=== PATIENT | female | born 1990 | race Caucasian/White ===

== ENCOUNTER 2023-05-26 13:27 | Outpatient (OUT) | payer OTHER, SELFPAY ==
--- NOTE | 2023-05-26 13:29 | US_ITS ---
The [address] [address] Patient Name: DENEEN OSORIO MRN: [id number] date: 1990 Sex: F Assigned Patient Location: US Current Patient Location: US Accession/Order Number: [id number] Exam Date: 05/26/2023 13:35 Report Date: 05/26/2023 15:54 At the request of: BARBARA COMER Procedure: US OB <= 14 weeks fetus EXAMINATION: US OB <= 14 weeks fetus HISTORY: MISSED MENSES COMPARISON: No relevant comparison available. FINDINGS: [place] intrauterine gestation Gestational sac: Normal morphology. 6.53 cm CRL: 7.14 cm, 13 weeks 2 days Heart rate: 159 beats minute Uterus is normal, anteverted The ovaries are normal. Cervix: Not measured Clinical age: 12 weeks 3 days Clinical JUAN ALBERTO: 12/05/2023 Ultrasound age: 13 weeks 2 days Ultrasound JUAN ALBERTO: 11/29/2023 US/US OB <= 14 weeks fetus IMPRESSION: Viable [place] intrauterine gestation measuring 13 weeks 2 days Electronically authenticated by: JAMES MANZO Date: 05/26/2023 15:54
== END 2023-05-26 13:28 | disposition home or self-care (01) ==
LOC: US 13:27
PROVIDERS: Visit Provider Obstetrics & Gynecology
DX: Z34.92 Encounter for supervision of normal pregnancy, unspecified, second trimester (principal); Z3A.13 13 weeks gestation of pregnancy; N92.6 Irregular menstruation, unspecified
CPT/HCPCS: 76801

== ENCOUNTER 2023-06-03 13:59 | Outpatient (OUT) | payer OTHER, SELFPAY ==
--- OUTSIDE RECORDS SUMMARY | 2023-06-03 14:02 | XMS_ITS | CCD ---
Author Name Unknown Address [address] [place] [address] Organization [facility] Care Team Providers Care Storage Battery Inspector And Tester Name Role Phone DR BARBARA COMER Attending Unavailable DR BARBARA COMER Admitting Unavailable Encounters Encounter Date Encounter Type Care Provider Facility Start: 05-26-2023 End: 05-26-2023 ambulatory Not Available Start: 09-19-[address] BARBARA COMER Facility : Payers Date Payer Category Payer Unknown [id number] 1990 Unknown [id number] 1990 Unknown [id number] 1958 Self-pay [id number] Summary Purpose Family History No Family History Records FoundNo Family History Records Found Advance Directives No Advanced Directives Records FoundNo Advanced Directives Records Found Additional Source Comments INFORMATION SOURCE (unrecogn ized section and content) DATE CREATED AUTHOR 09/19/2020 [facility] DATE CREATED AUTHOR AUTHOR'S ORGANIZ ATION 05/27/2023 [facility] EPIC FOR RECORDS PERTAINING TO PATIENTS WHO ARE OR HAVE BEEN ENROLLED IN A CHEMICAL DEPENDENCY/SUBSTANCEABUSE PROGRAM, SOME INFORMATION MAY BE OMITTED. This clinical summary was aggregated from multiple sources. Caution should be exercised in using it in the provision of clinical care. This summary normalizes information from multiple sources, and as a consequence, information in this document may materially change the coding, format and clinical context of patient data. In addition, data may be omitted in some cases. CLINICAL DECISIONS SHOULD BE BASED ON THE PRIMARY CLINICAL RECORDS. [facility] [employer] [facility]. provides no warranty or guarantee of the accuracy or completeness of information in this document.
[2023-06-03 14:42] LABS: Basophils Percent Auto 0.4 % (0.2-2.0); Eosinophils Absolute Auto 0.2 10^3/uL (0.0-0.7); Eosinophils Percent Auto 2.4 % (0.9-7.0); Hematocrit 31.9 % (36.0-48.0); Immature Granulocytes Abs Auto 0.03 10^3/uL (0.00-0.03); Immature Granulocytes Pct Auto 0.4 % (0.0-0.5); Lymphocytes Absolute Auto 2.6 10^3/uL (1.2-3.8); Lymphocytes Percent Auto 30.5 % (20.5-60.0); Mean Corpuscular HGB Conc 34.5 g/dL (29.9-35.2); Mean Corpuscular Hemoglobin 32.1 pg (26.7-34.0); Mean Platelet Volume 9.9 fL (9.5-13.5); Monocytes Absolute Auto 0.4 10^3/uL (0.3-0.8); Neutrophils Absolute Auto 5.2 10^3/uL (1.4-6.5); Neutrophils Percent Auto 61.3 % (43.0-75.0); Platelet Count 294 10^3/uL (150-450); Red Blood Count 3.43 10^6/uL (4.20-5.40); Red Cell Distribution Width 13.1 % (11.0-15.0); White Blood Count 8.4 10^3/uL (4.0-11.0)
[2023-06-03 14:52] LABS: Estimated Average Glucose 97 mg/dL
[2023-06-03 15:25] LABS: Thyroid Stimulating Hormone 1.122 uIU/mL (0.358-3.740)
[2023-06-04 06:10] LABS: HBsAg Screen Negative (Negative); HIV Ab/p24 Ag Screen Non Reactive (Non Reactive); Rubella Antibodies, IgG 1.71 index (Immune >0.99)
[2023-06-04 10:09] LABS: HCV Ab Non Reactive (Non Reactive)
[2023-06-04 11:09] LABS: Rapid Plasma Reagin, Quant Non Reactive titer (NonRea<1:1)
== END 2023-06-03 14:00 | disposition home or self-care (01) ==
LOC: LAB 14:00
PROVIDERS: Visit Provider Obstetrics & Gynecology
DX: N91.2 Amenorrhea, unspecified (principal)
CPT/HCPCS: 36415; 83036; 84443; 85025; 86592; 86762; 86803; 86850; 86900; 86901; 87086; 87340; 87389

== ENCOUNTER 2023-06-15 21:19 | Outpatient (REF) | payer OTHER, SELFPAY ==
--- OUTSIDE RECORDS SUMMARY | 2023-06-15 21:23 | XMS_ITS | CCD ---
Author Name Unknown Address [address] [place] [address] Organization [facility] Care Team Providers Care Crane Operator Cab Name Role Phone DR BARBARA COMER Attending Unavailable DR BARBARA COMER Admitting Unavailable Encounters Encounter Date Encounter Type Care Provider Facility Start: 05-26-2023 End: 05-26-2023 ambulatory Not Available Start: 09-19-[address] BARBARA COMER Facility : Payers Date Payer Category Payer Unknown [id number] 1990 Unknown [id number] 1990 Unknown [id number] 1958 Self-pay [id number] Summary Purpose Family History No Family History Records FoundNo Family History Records Found Advance Directives No Advanced Directives Records FoundNo Advanced Directives Records Found Additional Source Comments INFORMATION SOURCE (unrecogn ized section and content) DATE CREATED AUTHOR 09/19/2020 [facility] DATE CREATED AUTHOR AUTHOR'S ORGANIZ ATION 05/27/2023 [facility] EPIC FOR RECORDS PERTAINING TO [...] BE BASED ON THE PRIMARY CLINICAL RECORDS. [facility] [employer] [facility]. provides no warranty or guarantee of the accuracy or completeness of information in this document.
[2023-06-20 19:07] LABS: Age Gdln ACOG Testing Note (.); HPV Aptima Negative (Negative); IGP, Aptima HPV, rfx 16/18,45 Note (.)
== END 2023-06-15 21:20 | disposition home or self-care (01) ==
LOC: LAB 21:19
PROVIDERS: Visit Provider Obstetrics & Gynecology
DX: Z01.419 Encounter for gynecological examination (general) (routine) without abnormal findings (principal)
CPT/HCPCS: 87624; G0145

== ENCOUNTER 2023-07-02 09:21 | Outpatient (OUT) | payer OTHER, SELFPAY ==
--- OUTSIDE RECORDS SUMMARY | 2023-07-02 09:23 | XMS_ITS | CCD ---
Author Name Unknown Address [email or web address] [place] [address] Organization [facility] Care Team Providers Care Sleeve Setter Lockstitch Name Role Phone DR BARBARA BEAULIEU Attending Unavailable DR BARBARA BEAULIEU Admitting Unavailable BARBARA BEAULIEU Attending Unavailable Unavailable Primary Care Provider Unavailabl e Problems Problem Classification Problem Date Documented Da te Episodic/Chronic Immunizations and screening for infectious disease (2 sources) Exposure to sexually transmissible disorder; Translations: [Contact with and (suspected) exposure to infections with a predominantly sexual mode of transmission] 06-10-2023 Episodic Other female genital disorders (2 sources) Vaginal discharge; Translations: [Other specified noninflammatory disorders of vagina] 06-10-2023 Episodic Other and delivery including normal (2 sources) Second trimester ; Translations: [Encounter for supervision of normal , unspecified, second trimester] 06-10-2023 Episodic Other screening for suspected conditions (not mental disorders or infectious disease) (2 sources) Patient encounter status; Translations: [Encounter for other specified screening] 06-15-2023 Episodic Residual codes; unclassified (2 sources) Family history of diabetes mellitus; Translations: [Family history of diabetes mellitus] 06-15-2023 Episodic Results Test Name Value Interpretation Reference Range Facility IGP,APTIMA HPV,AGE GDLNon AGE GDLN ACOG TESTING Note . [facility] Comment on above: TESTS RESULT FLAG UN ITS REF RANGE LAB Clinician Provided Cytology Information Source.............End[employer]ix Other.............. No. of containers..01 ThinPrep Vial Age Mirza CANTRELL Yisel... 31 FLAG LEGEND: L-Low Normal,H-High Normal,LL-Alert Low,HH-Alert High <-Panic Low,>-Panic High,A-Abnormal,AA-Critical Abnormal Performed at: 01 =[address] [address] Belinda Rosenberg MD, HPV APTIMA Negative Negative [facility] Comment on above: This nucleic acid am plification test detects fourteen high- risk HPV types (16,18,31,33,35,39,45,51,52,56,58,59,66,68) without differentiation. Performed at: =[address] [id number] Bearing Ring Assembler: Belinda Rosenberg MD, Phone: [phone] Performed at: [address] [id number] Bearing Ring Assembler: Belinda Rosenberg MD, Phone: [phone] IGP, APTIMA HPV, RFX 16/18,45 Note . [facility] Comment on above: TESTS RESULT FLAG UN ITS REF RANGE LAB DIAGNOSIS: 02 NEGATIVE FOR INTRAEPITHELIAL LESION OR MALIGNANCY. Specimen adequacy: 02 Satisfactory for evaluation. Endocervical and/or squamous metaplastic cells (endocervical component) are present. Performed by: 02 Joe Gonzalez Disintegrator ([facility]) . 02 Note: Note 02 The Pap smear is a screening test designed to aid in the detection of premalignant and malignant conditions of the uterine cervix. It is not a diagnostic procedure and should not be used as the sole means of detecting cervical cancer. Both false-positive and false-negative reports do occur. Test Methodology: Note 02 This liquid based ThinPrep(R) pap test was screened with the use of an image guided system. HPV Genotype Reflex Note 02 Criteria not met, HPV Genotype not performed. FLAG LEGEND: L-Low Normal,H-High Normal,LL-Alert Low,HH-Alert High <-Panic Low,>-Panic High,A-Abnormal,AA-Critical Abnormal Performed at: 02 [facility] [address] [address] Belinda Rosenberg MD, [facility] Urinalysis macro (dipstick) panel (U)on 06-15-2023 Bilirubin, UA Negative Negative - 4(70) +++ mg/dL [facility] [employer] Blood, UA Negative Negative - 50 Bonifacio/mcL [facility] [employer] Clarity, UA Clear [facility] Color, UA Yellow [facility] Glucose, UA Negative Negative - 2000(110) ++++ mg/dL [facility] Interpretation and review of laboratory results Normal [facility] [employer] Ketones, UA Negative Negative - 160(16) ++++ mg/dL [facility] Leukocytes, UA Negative Negative - 500+++ Shahrzad/mcL [facility] Nitrite, UA Negative Negative - Positive [facility] pH, UA 5.5 5 - 9 [facility] Healthcar e Protein, UA Negative Negative - 2000(20) ++++ mg/dL [facility] Spec Grav, UA 1.020 1 - 1.03 [facility] Urobilinogen, UA 1.0 0.2 - 12 mg/dL [facility] Health[facility] e Vital Signs Date Time Vital Sign Value Performing Clinician Faci lity 06-15-2023 15:48-0500 Body weight 92.53 kg Barbara Christofer DO Work Phone: [facility] 06-15-2023 15:48-0500 Diastolic blood pressure 74 mm[Hg] Barbara Christofer DO Work Phone: [facility] 06-15-2023 15:48-0500 Systolic blood pressure 120 mm[Hg] Barbara Christofer DO Work Phone: [facility] Encounters Encounter Date Encounter Type Care Provider Facility Start: 06-15-2023 End: 06-15-2023 ambulatory BARBARA CHRISTOFER Not Available Start: 06-15-2023 End: 06-15-2023 Patient encounter procedure Barbara Christofer DO Work Phone: [facility] Start: 06-15-2023 End: 06-15-2023 Periodic preventive med est patient 18-39 yrs Barbara Christofer DO Work Phone: [facility] OB Comment on above: Second trimester pre gnancy; Well woman exam with routine gynecological exam; Exposure to STD; Vaginal discharge; Screening, , for anatomic survey; Family history of gestational diabetes mellitus (GDM) Start: 06-15-2023 [facility] Result Encounter Barbara Christofer DO Work Phone: [facility] External Department Unsolicited Start: 06-15-2023 [facility] Result Encounter Barbara Christofer DO Work Phone: [facility] External Department Unsolicited Start: 05-26-2023 End: 05-26-2023 ambulatory BARBARA CHRISTOFER Not Available Start: 09-19-[address] BARBARA BEAULIEU Facility :H1 Procedures Date Procedure Procedure Detail Performing Clinician Start: 06-15-2023 IGP,APTIMA HPV,AGE GDLN Barbara Beaulieu DO Work Phone: Start: 06-15-2023 Urnls dip stick/tabl et rgnt non-auto w/o micrscp Barbara Beaulieu DO Work Phone: Plan of Treatment Date Care Activity Detail Author Start: 07-13-2023 End: 07-13-2023 Patient encounter procedure 07/13/2023 2:50 PM EST Routine [facility] [address] [place] [address] Jeny Colón PA [address] [place] [address] [facility] Start: 07-13-2023 End: 07-13-2023 Professional / ancillary services management 07/13/2023 2:00 PM EST Ancillary Procedure [facility] [address] [place] [address] [facility] Start: 06-15-2023 End: 09-13-2023 Alpha fetoprotein, maternal Alpha fetoprotein, maternal Lab Routine Second trimester Expected: 06/15/2023 (Approximate), Expires: 09/13/2023 [facility] Comment on above: Expected: 06/15/2023 (Approximate), Expires: 09/13/2023 Start: 06-15-2023 End: 06-15-2024 US for US OB ANATOMY SINGLE W US OB CERVICAL LENGTH Imaging Routine Screening, , for anatomic survey Expected: 06/15/2023 (Approximate), Expires: 06/15/2024 [facility] Comment on above: Expected: 06/15/2023 (Approximate), Expires: 06/15/2024 CHLAMYDIA TRACHOMATI S (GENITO/STI) CHLAMYDIA TRACHOMATIS (GENITO/STI) Lab Routine Exposure to STD Ordered: 06/15/2023 [facility] Comment on above: Ordered: 06/15/2023 Cytology Cervical or vaginal smear or scraping study Pap Smear Pathology and Cytology Routine Well woman exam with routine gynecological exam Ordered: 06/15/2023 [facility] Work Phone: Comment on above: Ordered: 06/15/2023 Human papilloma viru s DNA [Presence] in Unspecified specimen by Probe with amplification HPV DNA probe, amplified Microbiology Routine Well woman exam with routine gynecological exam Ordered: 06/15/2023 [facility] Comment on above: Ordered: 06/15/2023 Measurement of gluco se 1 hour after glucose challenge for glucose tolerance test GTT, 1 hour Lab Routine Family history of gestational diabetes mellitus (GDM) Ordered: 06/15/2023 [facility] Comment on above: Ordered: 06/15/2023 Neisseria gonorrhoea e DNA [Presence] in Unspecified specimen by SHAILA with probe detection Neisseria gonorrhea DNA probe, direct Lab Routine Exposure to STD Ordered: 06/15/2023 [facility] Comment on above: Ordered: 06/15/2023 SURESWAB(R) ADVANCED VAGINITIS PLUS, TMA SURESWAB(R) ADVANCED VAGINITIS PLUS, TMA Pathology and Cytology Routine Vaginal discharge Ordered: 06/15/2023 [facility] Comment on above: Ordered: 06/15/2023 Payers Date Payer Category Payer Unknown [id number] 2022 Unknown [employer] [id number] 2022-Present [phone] [address] [address] [place] [address] [id number] 1990 Unknown [id number] 1990 Unknown [id number] 1990 Unknown [id number] 1958 Self-pay [id number] Social History Date Type Detail Facility Tobacco smoking stat [facility] Tobacco smoking consumption unknown [facility]: [facility]: 1990 Sex Assigned At Female [facility] Start: 04-18-2023 Gender identity Identifies as female gender (finding) [facility] Sexual orientation Not on file [facility] History of Present illness Narrative 06-15-2023 Dinora Marin LPN - 06/15/2023 3:20 PM EST Note Date & Type Note Facility 06-15-2023 History of Presen t illness Narrative Reason for Appointment: Patient ID: Jeana Batres is a 32 y.o. female who presents for Routine Visit Patient presents today for Annual Exam and Return OB appointment. Current Medications: currently has no medications in their medication list. Medical History: Active Ambulatory Problems Diagnosis Date Noted No Active Ambulatory Problems Resolved Ambulatory Problems Diagnosis Date Noted No Resolved Ambulatory Problems No Additional Past Medical History No family history on file. Social History Tobacco Use Smoking status: Not on file Smokeless tobacco: Not on file Substance Use Topics Alcohol use: Not on file Drug use: Not on file History reviewed. No pertinent surgical history. No Known Allergies Review of Systems: Review of Systems Constitutional: Negative. HENT: Negative. Eyes: Negative. Respiratory: Negative. Cardiovascular: Negative. Gastrointestinal: Negative. Genitourinary: Negative. Musculoskeletal: Negative. Skin: Negative. Neurological: Negative. All other systems reviewed and are negative. Hematological: Negative. Endocrine: Negative. Allergic/Immunologic: Negative. Objective Physical Exam Constitutional: Appearance: Normal appearance. She is well-developed. Genitourinary: Vulva normal. Breasts: Breasts are soft. Right: Normal. Left: Normal. Cardiovascular: Rate and Rhythm: Normal rate and regular rhythm. Pulmonary: Effort: Pulmonary effort is normal. Breath sounds: Normal breath sounds. Abdominal: General: Bowel sounds are normal. There is no distension. Palpations: Abdomen is soft. Tenderness: There is no abdominal tenderness. There is no guarding or rebound. Musculoskeletal: General: No swelling. Normal range of motion. Right lower leg: No edema. Left lower leg: No edema. Neurological: Mental Status: She is alert and oriented to person, place, and time. Skin: General: Skin is warm and dry. Psychiatric: Mood and Affect: Mood normal. Behavior: Behavior normal. Vitals and nursing note reviewed. Exam conducted with a tearoom host/hostess present. Vitals: There is no height or weight on file to calculate BMI. BP: 120/74 Patient's last menstrual period was 02/28/2023. Assessment/Plan Encounter Diagnoses Name Primary? Second trimester Well woman exam with routine gynecological exam Exposure to STD Vaginal discharge Screening, , for anatomic survey Patient presents today for an annual exam/routine obstetrics appointment. Patient is currently 16w1d . Patient is doing well and states she has no complaints. Pap/cultures was obtained without difficulty and patient was given msAFP order to have obtained. Pt given early one hour for h/o GDM Follow Up: Patient is to return to our office in 4 weeks for routine OB appointment Documented by Dinora Marin LPN on behalf of: Barbara Beaulieu DO documented in this encounter [facility] Evaluation note Note Date & Type Note Facility Evaluation note Diagnosis Second trimester state, incidental Well woman exam with routine gynecological exam Routine gynecological examination Exposure to STD Vaginal discharge Leukorrhea, not specified as infective Screening, , for anatomic survey Encounter for anatomic survey Family history of gestational diabetes mellitus (GDM) documented in this encounter [facility] Summary Purpose Family History No Family History Records FoundNo Family History Records Found Advance Directives No Advanced Directives Records FoundNo Advanced Directives Records Found Additional Source Comments INFORMATION SOURCE (unrecogn ized section and content) DATE CREATED AUTHOR 09/19/2020 [facility] DATE CREATED AUTHOR AUTHOR'S ORGANDAVE ATION 06/16/2023 [facility] EPIC Reason for Visit (unrecogniz ed section and content) Reason Comments Routine Visit FOR RECORDS PERTAINING TO PATIENTS WHO ARE [...] BE BASED ON THE PRIMARY CLINICAL RECORDS. [employer]. provides no warranty or guarantee of the accuracy or completeness of information in this document.
[2023-07-02 11:20] LABS: Glucose 1 Hour 160 mg/dL (<130)
[2023-07-04 18:08] LABS: AFP Value 46.4 ng/mL (.); Gest. Age on Collection Date 18.6 weeks (.); Gestat. Age Based On As provided (.); Insulin Dep Diabetes No (.); Maternal Age At EDD 32.1 yr (.); OSBR Risk 1 IN 6916 (.); Results Report (.)
== END 2023-07-02 09:22 | disposition home or self-care (01) ==
LOC: LAB 09:21
PROVIDERS: Visit Provider Obstetrics & Gynecology
DX: Z34.92 Encounter for supervision of normal pregnancy, unspecified, second trimester (principal); Z83.3 Family history of diabetes mellitus
CPT/HCPCS: 36415; 82105; 82950

== ENCOUNTER 2023-07-11 10:10 | Outpatient (OUT) | payer OTHER, SELFPAY ==
--- OUTSIDE RECORDS SUMMARY | 2023-07-11 10:15 | XMS_ITS | CCD ---
Author Name Unknown Address [address] [place] [address] Organization [facility] Care Team Providers Care Automatic Screwmaker Name Role Phone DR BARBARA BEAULIEU Attending [...] GDLNon AGE GDLN ACOG TESTING Note . [facility] Healthcare Comment on above: TESTS RESULT FLAG UN ITS REF RANGE LAB Clinician Provided Cytology Information Source.............[employer]ix Other.............. No. of containers..01 ThinPrep Vial Age Mirza CANTRELL Yisel... 31 FLAG LEGEND: L-Low Normal,H-High Normal,LL-Alert Low,HH-Alert High <-Panic Low,>-Panic High,A-Abnormal,AA-Critical Abnormal Performed at: 01 =[address] [address] Belinda Rosenberg MD, HPV APTIMA Negative Negative [facility] Comment on above: This nucleic acid am plification test detects fourteen high- risk HPV types (16,18,31,33,35,39,45,51,52,56,58,59,66,68) without differentiation. Performed at: =[address] [id number] Concrete Grinder Operator: Belinda Rosenberg MD, Phone: [phone] Performed at: [address] [id number] Concrete Grinder Operator: Belinda Rosenberg MD, Phone: [phone] IGP, APTIMA HPV, RFX 16/18,45 Note . [facility] Comment on above: TESTS RESULT FLAG UN ITS REF RANGE LAB DIAGNOSIS: 02 NEGATIVE FOR INTRAEPITHELIAL LESION OR MALIGNANCY. Specimen adequacy: 02 Satisfactory for evaluation. Endocervical and/or squamous metaplastic cells (endocervical component) are present. Performed by: 02 Joe Gonzalez Fleet Driver ([facility]) . 02 Note: Note 02 [...] High,A-Abnormal,AA-Critical Abnormal Performed at: 02 [facility] [address] [address] Belinda Rosenberg MD, SPATULA-ALONE ENDOCERVIX CLINISYNC [facility] Urinalysis macro (dipstick) panel (U)on 06-15-2023 Bilirubin, UA Negative Negative - 4(70) +++ mg/dL [facility] Pulse 8 Blood, UA Negative Negative - 50 Bonifacio/mcL [facility] Pulse 8 Clarity, UA Clear [facility] Color, UA Yellow [facility] Glucose, UA Negative Negative - 2000(110) ++++ mg/dL [facility] Interpretation and review of laboratory results Normal [facility] Pulse 8 Ketones, UA Negative Negative - 160(16) ++++ mg/dL [facility] Leukocytes, UA Negative Negative - 500+++ Shahrzad/mcL [facility] Nitrite, UA Negative Negative - Positive [facility] pH, UA 5.5 5 - 9 [facility] Protein, UA Negative Negative - 2000(20) ++++ mg/dL [facility] Spec Grav, UA 1.020 1 - 1.03 [facility] Urobilinogen, UA 1.0 0.2 - 12 mg/dL [facility] Health[facility] e Vital Signs Date Time Vital Sign Value Performing Clinician Faci lity 06-15-2023 15:48-0500 Body weight 92.53 kg Barbara Christofer DO Work Phone: [facility] 06-15-2023 15:48-0500 Diastolic blood pressure 74 mm[Hg] Barbara Christofer DO Work Phone: [facility] 06-15-2023 15:48-0500 Systolic blood pressure 120 mm[Hg] Barbara Christofer DO Work Phone: [facility] Encounters Encounter Date Encounter Type Care Provider Facility Start: 06-15-2023 End: 06-15-2023 ambulatory BARBARA CHRISTOFER Not Available Start: 06-15-2023 End: 06-15-2023 Patient encounter procedure Barbara Christofer DO Work Phone: [facility] Start: 06-15-2023 End: 06-15-2023 Periodic preventive med est patient 18-39 yrs Barbara Christofer DO Work Phone: [facility] Comment on above: Second trimester pre gnancy; Well woman exam with routine gynecological exam; Exposure to STD; Vaginal discharge; Screening, , for anatomic survey; Family history of gestational diabetes mellitus (GDM) Start: 06-15-2023 [facility] Result Encounter Barbara Christofer DO Work Phone: [facility] External Department Unsolicited Start: 06-15-2023 [facility] Result Encounter Barbara Christofer DO Work Phone: [facility] External Department Unsolicited Start: 05-26-2023 End: 05-26-2023 [...] procedure 07/13/2023 2:50 PM EST Routine [facility] [address] [place] [address] Jeny Colón PA [address] [place] [address] [facility] Start: 07-13-2023 End: 07-13-2023 Professional / ancillary services management 07/13/2023 2:00 PM EST Ancillary Procedure [facility] [address] [place] [address] [facility] Start: 06-15-2023 End: 09-13-2023 Alpha fetoprotein, maternal Alpha fetoprotein, maternal Lab Routine Second trimester Expected: 06/15/2023 (Approximate), Expires: 09/13/2023 [facility] Comment on above: Expected: 06/15/2023 (Approximate), Expires: 09/13/2023 Start: 06-15-2023 End: 06-15-2024 US for US OB ANATOMY SINGLE W US OB CERVICAL LENGTH Imaging Routine Screening, , for anatomic survey Expected: 06/15/2023 (Approximate), Expires: 06/15/2024 [facility] Comment on above: Expected: 06/15/2023 (Approximate), Expires: 06/15/2024 CHLAMYDIA TRACHOMATI S (GENITO/STI) CHLAMYDIA TRACHOMATIS (GENITO/STI) Lab Routine Exposure to STD Ordered: 06/15/2023 [facility] Comment on above: Ordered: 06/15/2023 Cytology Cervical or vaginal smear or scraping study Pap Smear Pathology and Cytology Routine Well woman exam with routine gynecological exam Ordered: 06/15/2023 [facility] Work Phone: Comment on above: Ordered: 06/15/2023 Human papilloma viru s DNA [Presence] in Unspecified specimen by Probe with amplification HPV DNA probe, amplified Microbiology Routine Well woman exam with routine gynecological exam Ordered: 06/15/2023 [facility] Comment on above: Ordered: 06/15/2023 Measurement of gluco se 1 hour after glucose challenge for glucose tolerance test GTT, 1 hour Lab Routine Family history of gestational diabetes mellitus (GDM) Ordered: 06/15/2023 [facility] Comment on above: Ordered: 06/15/2023 Neisseria gonorrhoea e DNA [Presence] in Unspecified specimen by SHAILA with probe detection Neisseria gonorrhea DNA probe, direct Lab Routine Exposure to STD Ordered: 06/15/2023 [facility] Comment on above: Ordered: 06/15/2023 SURESWAB(R) ADVANCED VAGINITIS PLUS, TMA SURESWAB(R) ADVANCED VAGINITIS PLUS, TMA Pathology and Cytology Routine Vaginal discharge Ordered: 06/15/2023 [facility] Comment on above: Ordered: 06/15/2023 Payers Date Payer Category Payer Unknown [id number] 2022 Unknown [employer] [id number] 2022-Present [phone] [address] [address] [place] [address] [id number] 1991 Unknown [id number] 3 1991 Unknown [id number] 59 1991 Unknown [id number] 59 1959 Self-pay [id number] Social History Date Type Detail Facility Tobacco smoking stat [facility] Tobacco smoking consumption unknown [facility] Healthcare Start: 03-08-2023 [facility] Start: 1990 Sex Assigned At Female N [facility] Healthcare Start: 04-18-2023 Gender identity Identifies as female gender (finding) [facility] Sexual orientation Not on file [facility] History of Present illness Narrative 06-15-2023 Dionra Marin LPN - 06/15/2023 3:20 PM EST [...] nursing note reviewed. Exam conducted with a sap pp consultant present. Vitals: There is no height or [...] DATE CREATED AUTHOR 09/19/2020 [facility] DATE CREATED AUTHOR AUTHOR'S ORGANDAVE ATION 06/16/2023 [facility] Specialists EPIC Reason for Visit [...] BE BASED ON THE PRIMARY CLINICAL RECORDS. [employer] provides no warranty or guarantee of the accuracy or completeness of information in this document.
[2023-07-11 10:33] LABS: Glucose Fasting 88 mg/dL (<95)
[2023-07-11 11:48] LABS: Glucose 1 Hour 161 mg/dL (<180)
[2023-07-11 12:39] LABS: Glucose 2 Hour 130 mg/dL (<155)
[2023-07-11 14:04] LABS: Glucose 3 Hour 80 mg/dL (<140)
== END 2023-07-11 10:11 | disposition home or self-care (01) ==
LOC: LAB 10:11
PROVIDERS: Visit Provider Obstetrics & Gynecology
DX: R73.09 Other abnormal glucose (principal)
CPT/HCPCS: 36415; 82951; 82952

== ENCOUNTER 2023-07-13 13:58 | Outpatient (OUT) | payer OTHER, SELFPAY ==
--- NOTE | 2023-07-13 14:02 | US_ITS ---
[address] [address] Patient Name: DENEEN OSORIO MRN: [id number] date: 1990 Sex: F Assigned Patient Location: [facility] Current Patient Location: [facility] Accession/Order Number: [id number] Exam Date: 07/13/2023 14:20 Report Date: 07/13/2023 15:26 At the request of: BARBARA COMER Procedure: US OB anatomy EXAMINATION: US OB anatomy, US OB cervical length HISTORY: ANATOMY COMPARISON: No relevant comparison available. TECHNIQUE: Transabdominal sonographic examination was performed for obstetrical and evaluation. FINDINGS: Number: 1 Heart Rate: 145.0 bpm H.B. /min Amniotic Fluid Volume: Subjectively normal position: Breech presentation, longitudinal lie Placental Location: POSTERIOR , the placental edge is 2.2 cm from the internal os Cervix Length: 3.7 cm , closed Normal anatomy: Lateral ventricles, cerebellum, posterior fossa, nose, lips, orbits, four-chamber heart, diaphragm, stomach, kidneys, abdominal cord insertion, bladder, umbilical arteries, three-vessel cord, spine, extremities Nonvisualization: RVOT, LVOT BIOMETRY: BPD: 4.6 cm 19 weeks 6 days , 37% HC: 17.5 cm 20 weeks 0 days, 35% AC: 15.6 cm 20 weeks 5 days, 67% FL: 3.3 cm 20 weeks 1 days , 45% EFW:354.2 grams; 12 ounces, 63% FL/AC: 20.9 FL/BPD: 71.4 HC/AC: 1.1 GESTATIONAL AGE: Age by EDC: 20 weeks 1 days Age by current US: 20 weeks 1 days JUAN ALBERTO by current US: 11/29/2023 JUAN ALBERTO by EDC: 11/29/2023 US/US OB anatomy IMPRESSION: Suboptimal visualization of the ventricular outflow tracts Low lying placenta Otherwise normal anatomy scan Closed cervix measuring 3.7 cm in length *Reference: [facility] Practice Guideline for the performance of Obstetric Ultrasound Examinations, February 06, 2007. Electronically authenticated by: JAMES MANZO Date: 07/13/2023 15:26
--- NOTE | 2023-07-13 14:02 | US_ITS ---
[address] [address] Patient Name: DENEEN OSORIO MRN: [id number] date: 1990 Sex: F Assigned Patient Location: [facility] Current Patient Location: [facility] Accession/Order Number: [id number] Exam Date: 07/13/2023 14:20 Report Date: 07/13/2023 15:26 At the request of: BARBARA COMER Procedure: US OB cervical length EXAMINATION: US OB anatomy, US OB cervical length HISTORY: ANATOMY COMPARISON: No relevant comparison available. TECHNIQUE: Transabdominal sonographic examination was performed for obstetrical and evaluation. FINDINGS: Number: 1 Heart Rate: 145.0 bpm H.B. /min Amniotic Fluid Volume: Subjectively normal position: Breech presentation, longitudinal lie Placental Location: POSTERIOR , the placental edge is 2.2 cm from the internal os Cervix Length: 3.7 cm , closed Normal anatomy: Lateral ventricles, cerebellum, posterior fossa, nose, lips, orbits, four-chamber heart, diaphragm, stomach, kidneys, abdominal cord insertion, bladder, umbilical arteries, three-vessel cord, spine, extremities Nonvisualization: RVOT, LVOT BIOMETRY: BPD: 4.6 cm 19 weeks 6 days , 37% HC: 17.5 cm 20 weeks 0 days, 35% AC: 15.6 cm 20 weeks 5 days, 67% FL: 3.3 cm 20 weeks 1 days , 45% EFW:354.2 grams; 12 ounces, 63% FL/AC: 20.9 FL/BPD: 71.4 HC/AC: 1.1 GESTATIONAL AGE: Age by EDC: 20 weeks 1 days Age by current US: 20 weeks 1 days JUAN ALBERTO by current US: 11/29/2023 JUAN ALBERTO by EDC: 11/29/2023 US/US OB cervical length IMPRESSION: Suboptimal visualization of the ventricular outflow tracts Low lying placenta Otherwise normal anatomy scan Closed cervix measuring 3.7 cm in length *Reference: [facility] Practice Guideline for the performance of Obstetric Ultrasound Examinations, February 06, 2007. Electronically authenticated by: JAMES MANZO Date: 07/13/2023 15:26
== END 2023-07-13 13:59 | disposition home or self-care (01) ==
LOC: NOMS 13:59
PROVIDERS: Visit Provider Obstetrics & Gynecology
DX: Z36.89 Encounter for other specified antenatal screening (principal); Z3A.20 20 weeks gestation of pregnancy
CPT/HCPCS: 76805; 76817

== ENCOUNTER 2023-08-11 10:49 | Outpatient (OUT) | payer OTHER, SELFPAY ==
--- NOTE | 2023-08-11 10:51 | US_ITS ---
The [address] [address] Patient Name: DENEEN OSORIO MRN: [id number] date: 1990 Sex: F Assigned Patient Location: [facility] Current Patient Location: [facility] Accession/Order Number: [id number] Exam Date: 08/11/2023 10:51 Report Date: 08/11/2023 11:53 At the request of: SADAF MODI Procedure: US OB incomplete anatomy EXAM: US OB incomplete anatomy HISTORY: SUB VISUALIZED OUTFLOW TRACTS COMPARISON: Ultrasound OB anatomy 07/13/2023 TECHNIQUE: Transabdominal ultrasound. FINDINGS: Heart rate: 138 bpm Anatomy: Four-chamber heart, RVOT, LVOT GA: 24 weeks 2 days JUAN ALBERTO: 11/29/2023 US/US OB incomplete anatomy IMPRESSION: 1. Single live intrauterine . 2. Adequate visualization of the four-chamber heart and cardiac outflow tracts; no appreciable abnormality. Electronically authenticated by: GREY BECKWITH Date: 08/11/2023 11:53
== END 2023-08-11 10:50 | disposition home or self-care (01) ==
LOC: NOMS 10:49
PROVIDERS: Visit Provider Physician Assistant
DX: Z36.2 Encounter for other antenatal screening follow-up (principal); Z3A.24 24 weeks gestation of pregnancy
CPT/HCPCS: 76815

== ENCOUNTER 2023-09-20 14:43 | Outpatient (OUT) | payer OTHER, SELFPAY ==
[2023-09-20 15:16] LABS: Albumin Globulin Ratio 0.7; Alkaline Phosphatase 133 U/L (46-116); Anion Gap 13.2; BUN Creatinine Ratio 8.2; Bilirubin Total 0.5 mg/dL (0.2-1.0); Carbon Dioxide 23.3 mmol/L (21.0-32.0); Chloride 100 mmol/L (98-107); Estimated GFR (African America >60 (>=60); Estimated GFR (Non-African Ame >60 (>=60); Globulin 4.3 g/dL; Glucose 100 mg/dL (74-106); Potassium 3.5 mmol/L (3.5-5.1); Sodium 133 mmol/L (136-145); Total Protein 7.3 g/dL (6.4-8.2)
[2023-09-20 15:34] LABS: Alanine Aminotransferase 21 U/L (14-59)
[2023-09-20 15:35] LABS: Aspartate Amino Transferase 17 U/L (15-37)
[2023-09-21 20:08] LABS: Bile Acids 3.9 umol/L (0.0-10.0)
== END 2023-09-20 14:44 | disposition home or self-care (01) ==
LOC: LAB 14:44
PROVIDERS: Visit Provider Physician Assistant
DX: R21 Rash and other nonspecific skin eruption (principal)
CPT/HCPCS: 36415; 80053; 82239

== ENCOUNTER 2023-10-04 16:25 | Outpatient (OUT) | payer OTHER, SELFPAY ==
--- OUTSIDE RECORDS SUMMARY | 2023-10-04 16:47 | XMS_ITS | CCD ---
Author Organization [employer] [facility] Care Team Providers Care Office Administration Name Role Phone DR BARBARA BEAULIEU Attending Unavailable DR BARBARA BEAULIEU Admitting Unavailable Unavailable Primary Care Provider UnavailBARBARA Gutierrez Attending Unavailable JENY MODI Attending Unavailable BARBARA BEAULIEU Attending Unavailable BARBARA BEAULIEU Attending Unavailable JENY MODI Attending Unavailable JENY MODI Attending Unavailable Problems Problem Classification Problem Date Documented Da [...] GDLNon AGE GDLN ACOG TESTING Note . [facility] Healthcare Comment on above: TESTS RESULT FLAG UN ITS REF RANGE LAB Clinician Provided Cytology Information Source.............[employer] Other.............. No. of containers..01 ThinPrep Vial Age Mirza CANTRELL Yisel... 31 FLAG LEGEND: L-Low Normal,H-High Normal,LL-Alert Low,HH-Alert High <-Panic Low,>-Panic High,A-Abnormal,AA-Critical Abnormal Performed at: 01 =G [address] [place] [address] Belinda Rosenberg MD, HPV APTIMA Negative Negative [facility] Comment on above: This nucleic acid am plification test detects fourteen high- risk HPV types (16,18,31,33,35,39,45,51,52,56,58,59,66,68) without differentiation. Performed at: =[facility] [id number] Equal Opportunity Assistant: Belinda Rosenberg MD, Phone: [phone] Performed at: - [address] [id number] Equal Opportunity Assistant: Belinda Rosenberg MD, Phone: [phone] IGP, APTIMA HPV, RFX 16/18,45 Note . [facility] Comment on above: TESTS RESULT FLAG UN ITS REF RANGE LAB DIAGNOSIS: 02 NEGATIVE FOR INTRAEPITHELIAL LESION OR MALIGNANCY. Specimen adequacy: 02 Satisfactory for evaluation. Endocervical and/or squamous metaplastic cells (endocervical component) are present. Performed by: 02 Joe Gonzalez Secretary Bookkeeper ([facility]) . 02 Note: Note 02 [...] <-Panic Low,>-Panic High,A-Abnormal,AA-Critical Abnormal Performed at: [address] [address] Belinda Rosenberg MD, SPATULA-ALONE ENDOCERVIX CLINIS[facility] [employer] e Urinalysis macro (dipstick) panel (U)on 06-15-2023 Bilirubin, UA Negative Negative - 4(70) +++ mg/dL [facility] Blood, UA Negative Negative - 50 Bonifacio/mcL [facility] Clarity, UA Clear [facility] Color, UA Yellow [facility] [employer] [facility] Glucose, UA Negative Negative - 2000(110) ++++ mg/dL [facility] Interpretation and review of laboratory results Normal [facility] Ketones, UA Negative Negative - 160(16) ++++ mg/dL [facility] Leukocytes, UA Negative Negative - 500+++ Shahrzad/mcL [facility] Nitrite, UA Negative Negative - Positive [facility] pH, UA 5.5 5 - 9 [facility] Health[facility] Protein, UA Negative Negative - 2000(20) ++++ mg/dL [facility] Spec Grav, UA 1.020 1 - 1.03 [facility] Urobilinogen, UA 1.0 0.2 - 12 mg/dL [facility] Health[facility] e Vital Signs Date Time Vital Sign Value Performing Clinician Faci lity 06-15-2023 15:48-0500 Body weight 92.53 kg Barbara Christofer DO Work Phone: [facility] 06-15-2023 15:48-0500 Diastolic blood pressure 74 mm[Hg] Barbara Christofer DO Work Phone: [facility] 06-15-2023 15:48-0500 Systolic blood pressure 120 mm[Hg] Barbara Christofer DO Work Phone: [facility] Encounters Encounter Date Encounter Type Care Provider Facility Start: 09-26-2023 End: 09-26-2023 ambulatory JENY LY Not Available Start: 09-20-2023 End: 09-20-2023 ambulatory JENY LY Not Available Start: 09-08-2023 End: 09-08-2023 ambulatory BARBARA CHRISTOFER Not Available Start: 08-11-2023 End: 08-11-2023 ambulatory BARBARA CHRISTOFER Not Available Start: 07-13-2023 End: 07-13-2023 ambulatory JEYN LY Not Available Start: 06-15-2023 End: 06-15-2023 ambulatory BARBARA CHRISTOFER Not Available Start: 06-15-2023 End: 06-15-2023 Patient encounter procedure Barbara Christofer DO Work Phone: [facility] Start: 06-15-2023 End: 06-15-2023 Periodic preventive med est patient 18-39 yrs Barbara Christofer DO Work Phone: [facility] Comment on above: Second trimester pre gnancy; Well woman exam with routine gynecological exam; Exposure to STD; Vaginal discharge; Screening, , for anatomic survey; Family history of gestational diabetes mellitus (GDM) Start: 06-15-2023 [facility] Result Encounter Barbara Christofer DO Work Phone: [facility] External Department Unsolicited Start: 06-15-2023 [facility] Result Encounter Barbara Cabrerazio DO Work Phone: [facility] External Department Unsolicited Start: 05-26-2023 End: 05-26-2023 ambulatory BARBARA BEAULIEU Not Available Start: 09-19-[address] BARBARA BEAULIEU Facility :H1 Procedures Date Procedure Procedure Detail Performing Clinician Start: 06-15-2023 IGP,APTIMA HPV,AGE GDLN Barbara Christofer DO Work Phone: Start: 06-15-2023 Urnls dip stick/tabl et rgnt non-auto w/o micrscp Barbara Christofer DO Work Phone: Plan of Treatment Date Care Activity Detail Author Start: 07-13-2023 End: 07-13-2023 Patient encounter procedure 07/13/2023 2:50 PM EST Routine [facility] [address] [place] [id number] Jeny Modi PA [address] [place] [address] [facility] Start: 07-13-2023 End: 07-13-2023 Professional / ancillary services management 07/13/2023 2:00 PM EST Ancillary Procedure [facility] [address] [place] [id number] [facility] Start: 06-15-2023 End: 09-13-2023 Alpha fetoprotein, maternal Alpha fetoprotein, maternal Lab Routine Second trimester Expected: 06/15/2023 (Approximate), Expires: 09/13/2023 [facility] Healthcare Comment on above: Expected: 06/15/2023 (Approximate), Expires: 09/13/2023 Start: 06-15-2023 End: 06-15-2024 US for US OB ANATOMY SINGLE W US OB CERVICAL LENGTH Imaging Routine Screening, , for anatomic survey Expected: 06/15/2023 (Approximate), Expires: 06/15/2024 [facility] Comment on above: Expected: 06/15/2023 (Approximate), Expires: 06/15/2024 CHLAMYDIA TRACHOMATI S (GENITO/STI) CHLAMYDIA TRACHOMATIS (GENITO/STI) Lab Routine Exposure to STD Ordered: 06/15/2023 [facility] Comment on above: Ordered: 06/15/2023 Cytology Cervical or vaginal smear or scraping study Pap Smear Pathology and Cytology Routine Well woman exam with routine gynecological exam Ordered: 06/15/2023 [facility] Work Phone: Comment on above: Ordered: 06/15/2023 Human papilloma viru s DNA [Presence] in Unspecified specimen by Probe with amplification HPV DNA probe, amplified Microbiology Routine Well woman exam with routine gynecological exam Ordered: 06/15/2023 [facility] Comment on above: Ordered: 06/15/2023 Measurement of gluco se 1 hour after glucose challenge for glucose tolerance test GTT, 1 hour Lab Routine Family history of gestational diabetes mellitus (GDM) Ordered: 06/15/2023 [facility] Comment on above: Ordered: 06/15/2023 Neisseria gonorrhoea e DNA [Presence] in Unspecified specimen by SHAILA with probe detection Neisseria gonorrhea DNA probe, direct Lab Routine Exposure to STD Ordered: 06/15/2023 [facility] Comment on above: Ordered: 06/15/2023 SURESWAB(R) ADVANCED VAGINITIS PLUS, TMA SURESWAB(R) ADVANCED VAGINITIS PLUS, TMA Pathology and Cytology Routine Vaginal discharge Ordered: 06/15/2023 [facility] Comment on above: Ordered: 06/15/2023 Payers Date Payer Category Payer Unknown [employer] [id number] 2022-Present [phone] [address] [address] [place] [address] [id number] 2022 Unknown [id number] 1990 Unknown [id number] 3 1991 Unknown [id number] 59 1991 Unknown [id number] 59 1991 Unknown [id number] 59 1991 Unknown [id number] 59 1991 Unknown [id number] 59 1991 Unknown [id number] 59 1991 Unknown [id number] 59 1958 Self-pay [id number] Social History Date Type Detail Facility Tobacco smoking stat [facility] Tobacco smoking consumption unknown [facility] Start: 03-08-2023 [facility] Start: 1990 Sex Assigned At Female [facility] Start: 04-18-2023 Gender identity Identifies as [...] nursing note reviewed. Exam conducted with a director service present. Vitals: There is no height or [...] content) DATE CREATED AUTHOR 09/19/2020 [facility] DATE CREATED AUTHOR AUTHOR'S ORGANIZ ATION 09/28/2023 [facility] dical Specialists EPIC Reason for Visit (unrecogniz [...] BE BASED ON THE PRIMARY CLINICAL RECORDS. [facility] [employer] [facility]. provides no warranty or guarantee of the accuracy or completeness of information in this document.
[2023-10-04 17:10] LABS: Basophils Percent Auto 0.3 % (0.2-2.0); Eosinophils Absolute Auto 0.4 10^3/uL (0.0-0.7); Eosinophils Percent Auto 2.7 % (0.9-7.0); Hematocrit 32.8 % (36.0-48.0); Hemoglobin 11.3 g/dL (12.0-16.0); Immature Granulocytes Abs Auto 0.06 10^3/uL (0.00-0.03); Immature Granulocytes Pct Auto 0.4 % (0.0-0.5); Lymphocytes Absolute Auto 2.5 10^3/uL (1.2-3.8); Lymphocytes Percent Auto 18.1 % (20.5-60.0); Mean Corpuscular HGB Conc 34.5 g/dL (29.9-35.2); Mean Corpuscular Hemoglobin 32.9 pg (26.7-34.0); Mean Corpuscular Volume 95.6 fL (81.0-99.0); Mean Platelet Volume 9.9 fL (9.5-13.5); Monocytes Absolute Auto 0.7 10^3/uL (0.3-0.8); Monocytes Percent Auto 5.3 % (1.7-12.0); Neutrophils Absolute Auto 10.3 10^3/uL (1.4-6.5); Neutrophils Percent Auto 73.2 % (43.0-75.0); Platelet Count 315 10^3/uL (150-450); Red Blood Count 3.43 10^6/uL (4.20-5.40); Red Cell Distribution Width 14.6 % (11.0-15.0)
[2023-10-04 17:49] LABS: Alanine Aminotransferase 18 U/L (14-59); Albumin Globulin Ratio 0.6; Albumin Level 2.6 g/dL (3.4-5.0); Alkaline Phosphatase 149 U/L (46-116); Anion Gap 15.1; Aspartate Amino Transferase 20 U/L (15-37); BUN Creatinine Ratio 7.8; Bilirubin Total 0.5 mg/dL (0.2-1.0); Calcium 8.4 mg/dL (8.5-10.1); Carbon Dioxide 23.3 mmol/L (21.0-32.0); Chloride 101 mmol/L (98-107); Estimated GFR (African America >60 (>=60); Estimated GFR (Non-African Ame >60 (>=60); Globulin 4.2 g/dL; Glucose 100 mg/dL (74-106); Potassium 3.4 mmol/L (3.5-5.1); Sodium 136 mmol/L (136-145); Total Protein 6.8 g/dL (6.4-8.2)
== END 2023-10-04 16:26 | disposition home or self-care (01) ==
PROVIDERS: Visit Provider Physician Assistant
DX: R21 Rash and other nonspecific skin eruption (principal); Z34.93 Encounter for supervision of normal pregnancy, unspecified, third trimester
CPT/HCPCS: 36415; 80053; 85025

== ENCOUNTER 2023-11-02 07:03 | Outpatient (OUT) | payer OTHER, SELFPAY ==
--- OUTSIDE RECORDS SUMMARY | 2023-11-02 07:06 | XMS_ITS | CCD ---
Author Organization [facility] Care Team Providers Care Enterprise Security Architect Name Role Phone DR BARBARA BEAULIEU Attending Unavailable CHRISTOFER, DR JIMENEZ Admitting Unavailable Unavailable Primary Care Provider UnavailBARBARA Gutierrez Attending Unavailable JENY MODI Attending Unavailable CHRISTOFER, BARBARA Attending Unavailable BARBARA BEAULIEU Attending Unavailable JENY MODI Attending Unavailable JENY MODI Attending Unavailable CHIRSTOFER, BARBARA Attending Unavailable PABLO FLORES Attending Unavailable JENY MODI Referring Unavailable BARBARA BEAULIEU Attending Unavailable Problems Problem Classification Problem Date [...] GDLNon AGE GDLN ACOG TESTING Note . [facility] Comment on above: TESTS RESULT FLAG UN ITS REF RANGE LAB Clinician Provided Cytology Information Source.............[employer] Other.............. No. of containers..01 ThinPrep Vial Age Algo ACOG Yisel... 3065 01 FLAG LEGEND: L-Low Normal,H-High Normal,LL-Alert Low,HH-Alert High <-Panic Low,>-Panic High,A-Abnormal,AA-Critical Abnormal Performed at: 01 =G [address] [address] Belinda Rosenberg MD, HPV APTIMA Negative Negative [facility] Comment on above: This nucleic acid am plification test detects fourteen high- risk HPV types (16,18,31,33,35,39,45,51,52,56,58,59,66,68) without differentiation. Performed at: = - [address] [id number] Medical Facilities Section Director: Belinda Rosenberg MD, Phone: [phone] Performed at: - [address] [id number] Medical Facilities Section Director: Belinda Rosenberg MD, Phone: [phone] IGP, APTIMA HPV, RFX 16/18,45 Note . [facility] Comment on above: TESTS RESULT FLAG UN ITS REF RANGE LAB DIAGNOSIS: 02 NEGATIVE FOR INTRAEPITHELIAL LESION OR MALIGNANCY. Specimen adequacy: 02 Satisfactory for evaluation. Endocervical and/or squamous metaplastic cells (endocervical component) are present. Performed by: 02 Joe Gonzalez Heating Element Repairer ([facility]) . 02 Note: Note 02 The Pap [...] Low,>-Panic High,A-Abnormal,AA-Critical Abnormal Performed at: [address] [address] Belinda Rosenberg MD, SPATULA-ALONE ENDOCERVIX CLINIS[facility] Urinalysis macro (dipstick) panel (U)on 06-15-2023 Bilirubin, UA Negative Negative - 4(70) +++ mg/dL [facility] [employer] Blood, UA Negative Negative - 50 Bonifacio/mcL [facility] [employer] Clarity, UA Clear [facility] Color, UA Yellow [facility] Glucose, UA Negative Negative - 1999(110) ++++ mg/dL [facility] Interpretation and review of laboratory results Normal [facility] Ketones, UA Negative Negative - 160(16) ++++ mg/dL [facility] Leukocytes, UA Negative Negative - 500+++ Shahrzad/mcL [facility] Nitrite, UA Negative Negative - Positive [facility] pH, UA 5.5 5 - 9 [facility] Protein, UA Negative Negative - 2000(20) ++++ mg/dL [facility] Spec Grav, UA 1.020 1 - 1.03 [facility] Urobilinogen, UA 1.0 0.2 - 12 mg/dL [facility] Vital Signs Date Time Vital Sign Value Performing Clinician Sharonda lity 06-15-2023 15:48-0500 Body weight 92.53 kg Barbara Christofer DO Work Phone: [facility] 06-15-2023 15:48-0500 Diastolic blood pressure 74 mm[Hg] Barbara Christofer DO Work Phone: [facility] 06-15-2023 15:48-0500 Systolic blood pressure 120 mm[Hg] Barbara Christofer DO Work Phone: [facility] Encounters Encounter Date Encounter Type Care Provider Facility Start: 10-26-2023 End: 10-26-2023 ambulatory BARBARA CHRISTOFER Not Available Start: 10-11-2023 End: 10-11-2023 ambulatory PABLO Haque PETRIGOBERTOI Not Available Start: 10-10-2023 End: 10-10-2023 ambulatory BARBARA CHRISTOFER Not Available Start: 09-26-2023 End: 09-26-2023 ambulatory JENY LY Not Available Start: 09-20-2023 End: 09-20-2023 ambulatory JENY LY Not Available Start: 09-08-2023 End: 09-08-2023 ambulatory BARBARA CHRISTOFER Not Available Start: 08-11-2023 End: 08-11-2023 ambulatory BARBARA CHRISTOFER Not Available Start: 07-13-2023 End: 07-13-2023 ambulatory JENY LY Not Available Start: 06-15-2023 End: 06-15-2023 Patient encounter procedure Barbara Christofer DO Work Phone: [facility] Start: 06-15-2023 End: 06-15-2023 Periodic preventive med est patient 18-39 yrs Barbara Beaulieu DO Work Phone: [facility] Comment on above: Second trimester pre gnancy; Well woman exam with routine gynecological exam; Exposure to STD; Vaginal discharge; Screening, , for anatomic survey; Family history of gestational diabetes mellitus (GDM) Start: 06-15-2023 End: 06-15-2023 ambulatory BARBARA QUESADAO Not Available Start: 06-15-2023 [facility] Result Encounter Barbara Quesadao DO Work Phone: [facility] Unsolicited Start: 06-15-2023 [facility] Result Encounter Barbara Quesadao DO Work Phone: [facility] Unsolicited Start: 05-26-2023 End: 05-26-2023 ambulatory BARBARA CHRISTOFER Not Available Start: 09-19-[address] BARBARA BEAULIEU Facility : Procedures Date Procedure Procedure Detail Performing Clinician Start: 06-15-2023 IGP,APTIMA HPV,AGE GDLN Barbara Quesadao DO Work Phone: Start: 06-15-2023 Urnls dip stick/tabl et rgnt non-auto w/o micrscp Barbara Quesadao DO Work Phone: Plan of Treatment Date Care Activity Detail Author Start: 07-13-2023 End: 07-13-2023 Patient encounter procedure 07/13/2023 2:50 PM EST Routine [facility] [address] [place] [address] Jeny Modi PA [address] [place] [address] [facility] Start: 07-13-2023 End: 07-13-2023 Professional / ancillary services management 07/13/2023 2:00 PM EST Ancillary Procedure [facility] [address] [place] [address] [facility] Start: 06-15-2023 End: 09-13-2023 Alpha fetoprotein, maternal Alpha fetoprotein, maternal Lab Routine Second trimester Expected: 06/15/2023 (Approximate), Expires: 09/13/2023 [facility] Comment on above: Expected: 06/15/2023 (Approximate), Expires: 09/13/2023 Start: 06-15-2023 End: 06-15-2024 US for US OB ANATOMY SINGLE W US OB CERVICAL LENGTH Imaging Routine Screening, , for anatomic survey Expected: 06/15/2023 (Approximate), Expires: 06/15/2024 [facility] Comment on above: Expected: 06/15/2023 (Approximate), Expires: 06/15/2024 CHLAMYDIA TRACHOMATI S (GENITO/STI) CHLAMYDIA TRACHOMATIS (GENITO/STI) Lab Routine Exposure to STD Ordered: 06/15/2023 [facility] Comment on above: Ordered: 06/15/2023 Cytology Cervical or vaginal smear or scraping study Pap Smear Pathology and Cytology Routine Well woman exam with routine gynecological exam Ordered: 06/15/2023 [facility] Work Phone: Comment on above: Ordered: 06/15/2023 Human papilloma viru s DNA [Presence] in Unspecified specimen by Probe with amplification HPV DNA probe, amplified Microbiology Routine Well woman exam with routine gynecological exam Ordered: 06/15/2023 [facility] Comment on above: Ordered: 06/15/2023 Measurement of gluco se 1 hour after glucose challenge for glucose tolerance test GTT, 1 hour Lab Routine Family history of gestational diabetes mellitus (GDM) Ordered: 06/15/2023 [facility] Comment on above: Ordered: 06/15/2023 Neisseria gonorrhoea e DNA [Presence] in Unspecified specimen by SHAILA with probe detection Neisseria gonorrhea DNA probe, direct Lab Routine Exposure to STD Ordered: 06/15/2023 [facility] Comment on above: Ordered: 06/15/2023 SURESWAB(R) ADVANCED VAGINITIS PLUS, TMA SURESWAB(R) ADVANCED VAGINITIS PLUS, TMA Pathology and Cytology Routine Vaginal discharge Ordered: 06/15/2023 [facility] Comment on above: Ordered: 06/15/2023 Payers Date Payer Category Payer Unknown [employer] [id number] 2022-Present [phone] [address] [address] [place] [address] [id number] 2022 Unknown [id number] 1990 Unknown [id number] [id number] 3 1991 Unknown [id number] 2.16.840.1.131411.3.579.2.12 59 1991 Unknown [id number] 2.16.840.1.026628.3.579.2.12 59 1991 Unknown [id number] 2.16.840.1.836764.3.579.2.12 59 1991 Unknown [id number] 2.16.840.1.638352.3.579.2.12 59 1991 Unknown [id number] 2.16.840.1.228651.3.579.2.12 59 1991 Unknown [id number] 2.16.840.1.762025.3.579.2.12 59 1991 Unknown [id number] 2.16.840.1.949525.3.579.2.12 59 1991 Unknown [id number] 2.16.840.1.759038.3.579.2.12 59 1991 Unknown [id number] 2.16.840.1.547056.3.579.2.12 59 1991 Unknown [id number] 2.16.840.1.846678.3.579.2.12 59 1958 Self-pay [id number] Social History Date Type Detail Facility Tobacco smoking stat [facility] Tobacco smoking consumption unknown [facility] Start: 03-08-2023 [facility] Start: 1990 Sex Assigned At Female [facility] Start: 04-18-2023 Gender identity Identifies as female gender (finding) [facility] Sexual orientation Not on file [facility] History of Present illness Narrative 06-15-2023 Dinora Marin, ANIMATED CARTOONS PAINTER - 06/15/2023 3:20 PM EST Note Date [...] nursing note reviewed. Exam conducted with a appeals reviewer veteran present. Vitals: There is no height or [...] pital DATE CREATED AUTHOR AUTHOR'S ORGANIZ ATION 10/28/2023 [facility] d[facility] Specialists EPIC Reason for Visit [...] BE BASED ON THE PRIMARY CLINICAL RECORDS. [employer]. provides no warranty or guarantee of the accuracy or completeness of information in this document.
--- NOTE | 2023-11-02 16:27 | US_ITS ---
[address] [address] Patient Name: DENEEN OSORIO MRN: [id number] date: 1990 Sex: F Assigned Patient Location: [facility] Current Patient Location: LAB Accession/Order Number: [id number] Exam Date: 11/02/2023 17:03 Report Date: 11/03/2023 07:09 At the request of: BARBARA COMER Procedure: US OB BPP w non-stress EXAMINATION: US OB BPP w non-stress HISTORY: History of pre-eclampsia in prior O09.299 COMPARISON: No relevant comparison available. TECHNIQUE: Ultrasound biophysical profile was performed in the radiology department. non-reactive stress testing was performed by nursing staff in the birthing center. FINDINGS: BREATHING MOVEMENTS: 2 GROSS BODY MOVEMENTS: 2 TONE: 2 QUALITATIVE AMNIOTIC FLUID VOLUME: 2 PRESENTATION: CEPHALIC HEART RATE: 135 bpm AMNIOTIC FLUID VOLUME: 11.6 cm GESTATIONAL AGE: 36 weeks 1 day US/US OB BPP w non-stress IMPRESSION: Total biophysical profile score: 8 Electronically authenticated by: JAMES MANZO Date: 11/03/2023 07:09
[2023-11-02] MEDS: BETAMETHASONE ACE/BETAMETHASONE SOD PHOS 30 MG/5 ML 12 MG IM (17:30)
[2023-11-02 17:53] VITALS: BP 139/105; PULSE 82
[2023-11-02 17:55] VITALS: BP 142/83; PULSE 76
[2023-11-02 18:11] VITALS: BP 127/82; PULSE 80
== END 2023-11-02 18:40 | disposition home or self-care (01) ==
LOC: US 07:03 → FBC 16:58
PROVIDERS: Visit Provider Obstetrics & Gynecology
DX: O09.293 Supervision of pregnancy with other poor reproductive or obstetric history, third trimester (principal); Z3A.36 36 weeks gestation of pregnancy
CPT/HCPCS: 76816; 76818; J0702

== ENCOUNTER 2023-11-02 15:10 | Outpatient (OUT) | payer OTHER, SELFPAY ==
--- NOTE | 2023-11-02 15:14 | US_ITS ---
[address] [address] Patient Name: DENEEN OSORIO MRN: [id number] date: 1990 Sex: F Assigned Patient Location: [facility] Current Patient Location: [facility] Accession/Order Number: [id number] Exam Date: 11/02/2023 15:15 Report Date: 11/02/2023 16:04 At the request of: BARBARA COMER Procedure: US OB growth EXAMINATION: US OB growth HISTORY: HISTORY OF PRE-ECLAMPSIA IN PRIOR COMPARISON: No relevant comparison available. FINDINGS: Heart Rate: 140 bpm Amniotic Fluid Volume: 11.8 cm, largest fluid pocket 4.4 cm Number: 1 Position: Cephalic presentation, longitudinal lie BIOMETRY: BPD: 8.63 cm cm; ; 22.30 %% HC: 32.29 cm cm; 28 %% AC: 33.31 cm cm; 86.10 %% FL: 7.12 cm cm; 55.10 %% EFW: 2851.06 g; 66.90 % FL/AC: 21.37 FL/BPD: 82.50 HC/AC: 0.97 GESTATIONAL AGE: Age by EDC: 36 weeks 1 day JUAN ALBERTO by EDC: 2023-11-29 Age by US: 36 weeks 2 days JUAN ALBERTO by US: 2023-11-28 US/US OB growth IMPRESSION: Normal interval growth Electronically authenticated by: JAMES MANZO Date: 11/02/2023 16:04
--- OUTSIDE RECORDS SUMMARY | 2023-11-02 15:33 | XMS_ITS | CCD ---
Author Organization [facility] Care Team Providers Care Physician Office Secretary Name Role Phone DR BARBARA BEAULIEU Attending Unavailable CHRISTOFER, DR JIMENEZ Admitting Unavailable Unavailable Primary Care Provider UnavailBARBARA Gutierrez Attending Unavailable JENY MODI Attending Unavailable CHRISTOFER, BARBARA Attending Unavailable BARBARA BEAULIEU Attending Unavailable JENY MODI Attending Unavailable JENY MODI Attending Unavailable CHRISTOFER, BARBARA Attending Unavailable PABLO FLORES Attending Unavailable [...] Low,>-Panic High,A-Abnormal,AA-Critical Abnormal Performed at: 01 =G [address] [address] Belinda Rosenberg MD, HPV APTIMA Negative Negative [facility] Comment on above: This nucleic acid am plification test detects fourteen high- risk HPV types (16,18,31,33,35,39,45,51,52,56,58,59,66,68) without differentiation. Performed at: = - [address] [id number] Video System Repairer: Belinda Rosenberg MD, Phone: [phone] Performed at: - [address] [id number] Video System Repairer: Belinda Rosenberg MD, Phone: [phone] IGP, APTIMA HPV, RFX 16/18,45 Note . [facility] Comment on above: TESTS RESULT FLAG UN ITS REF RANGE LAB DIAGNOSIS: 02 NEGATIVE FOR INTRAEPITHELIAL LESION OR MALIGNANCY. Specimen adequacy: 02 Satisfactory for evaluation. Endocervical and/or squamous metaplastic cells (endocervical component) are present. Performed by: 02 Joe Gonzalez Transformer Inspector ([facility]) . 02 Note: Note 02 The Pap [...] Low,>-Panic High,A-Abnormal,AA-Critical Abnormal Performed at: [address] [address] Belinda Rosenberg MD, SPATULA-ALONE ENDOCERVIX [facility] [employer] [facility] Urinalysis macro (dipstick) panel (U)on 06-15-2023 Bilirubin, UA Negative Negative - 4(70) +++ mg/dL [facility] [employer] Blood, UA Negative Negative - 50 Bonifacio/mcL [facility] [employer] Clarity, UA Clear [facility] Color, UA Yellow [facility] Glucose, UA Negative Negative - 1999(110) ++++ mg/dL [facility] Interpretation and review of laboratory results Normal [facility] Ketones, UA Negative Negative - 160(16) ++++ mg/dL [facility] Leukocytes, UA Negative Negative - 500+++ Shahzrad/mcL [facility] Nitrite, UA Negative Negative - Positive [facility] pH, UA 5.5 5 - 9 [facility] Protein, UA Negative Negative - 2000(20) ++++ mg/dL [facility] Spec Grav, UA 1.020 1 - 1.03 [facility] Urobilinogen, UA 1.0 0.2 - 12 mg/dL [facility] Vital Signs Date Time Vital Sign Value Performing Clinician Sharonda lity 06-15-2023 15:48-0500 Body weight 92.53 kg Barbara Christofer DO Work Phone: [facility] 06-15-2023 15:48-0500 Diastolic blood pressure 74 mm[Hg] Barbara Christofer DO Work Phone: [facility] 06-15-2023 15:48-0500 Systolic blood pressure 120 mm[Hg] Barbara Christofer DO Work Phone: [facility] Encounters Encounter Date Encounter Type Care Provider Facility Start: 10-26-2023 End: 10-26-2023 ambulatory BARBARA CHRISTOFER Not Available Start: 10-11-2023 End: 10-11-2023 ambulatory PABLO Haque PETRIGOBERTOI Not Available Start: 10-10-2023 End: 10-10-2023 ambulatory BARBARA CHRISTOFER Not Available Start: 09-26-2023 End: 09-26-2023 ambulatory JENY LY Not Available Start: 09-20-2023 End: 09-20-2023 ambulatory JNEY LY Not Available Start: 09-08-2023 End: 09-08-2023 ambulatory BARBARA CHRISTOFER Not Available Start: 08-11-2023 End: 08-11-2023 ambulatory BARBARA CHRISTOFER Not Available Start: 07-13-2023 End: 07-13-2023 ambulatory JENY LY Not Available Start: 06-15-2023 End: 06-15-2023 Patient encounter procedure Barbara Christofer DO Work Phone: [facility] Start: 06-15-2023 End: 06-15-2023 Periodic preventive med est patient 18-39 yrs Barbara Beaulieu DO Work Phone: [facility] Comment on above: Second [...] Routine [facility] [address] [place] [address] Jeny Modi PA [address] [place] [address] [facility] Start: 07-13-2023 End: 07-13-2023 Professional / ancillary services management 07/13/2023 2:00 PM EST Ancillary Procedure [facility] [address] [place] [address] [facility] Start: 06-15-2023 End: 09-13-2023 Alpha fetoprotein, maternal Alpha fetoprotein, maternal Lab Routine Second trimester Expected: 06/15/2023 (Approximate), Expires: 09/13/2023 [facility] Comment on above: Expected: 06/15/2023 (Approximate), Expires: 09/13/2023 Start: 06-15-2023 End: 06-15-2024 US for US OB ANATOMY SINGLE W US OB CERVICAL LENGTH Imaging Routine Screening, , for anatomic survey Expected: 06/15/2023 (Approximate), Expires: 06/15/2024 [facility] Comment on above: Expected: 06/15/2023 (Approximate), Expires: 06/15/2024 CHLAMYDIA TRACHOMATI S (GENITO/STI) CHLAMYDIA TRACHOMATIS (GENITO/STI) Lab Routine Exposure to STD Ordered: 06/15/2023 [facility] Comment on above: Ordered: 06/15/2023 Cytology Cervical or vaginal smear or scraping study Pap Smear Pathology and Cytology Routine Well woman exam with routine gynecological exam Ordered: 06/15/2023 [facility] Work Phone: Comment on above: Ordered: 06/15/2023 Human papilloma viru s DNA [Presence] in Unspecified specimen by Probe with amplification HPV DNA probe, amplified Microbiology Routine Well woman exam with routine gynecological exam Ordered: 06/15/2023 [facility] Comment on above: Ordered: 06/15/2023 Measurement of gluco se 1 hour after glucose challenge for glucose tolerance test GTT, 1 hour Lab Routine Family history of gestational diabetes mellitus (GDM) Ordered: 06/15/2023 [facility] Comment on above: Ordered: 06/15/2023 Neisseria gonorrhoea e DNA [Presence] in Unspecified specimen by SHAILA with probe detection Neisseria gonorrhea DNA probe, direct Lab Routine Exposure to STD Ordered: 06/15/2023 [facility] Comment on above: Ordered: 06/15/2023 SURESWAB(R) ADVANCED VAGINITIS PLUS, TMA SURESWAB(R) ADVANCED VAGINITIS PLUS, TMA Pathology and Cytology Routine Vaginal discharge Ordered: 06/15/2023 [facility] Comment on above: Ordered: 06/15/2023 Payers Date Payer Category Payer Unknown [employer] [id number] 2022-Present [phone] [address] [address] [place] [address] [id number] 2022 Unknown [id number] 1990 Unknown [id number] [id number] 3 1991 Unknown [id number] 2.16.840.1.735413.3.579.2.12 59 1991 Unknown [id number] 2.16.840.1.454641.3.579.2.12 59 1991 Unknown [id number] 2.16.840.1.668460.3.579.2.12 59 1991 Unknown [id number] 2.16.840.1.232008.3.579.2.12 59 1991 Unknown [id number] 2.16.840.1.203549.3.579.2.12 59 1991 Unknown [id number] 2.16.840.1.329619.3.579.2.12 59 1991 Unknown [id number] 2.16.840.1.215903.3.579.2.12 59 1991 Unknown [id number] 2.16.840.1.667780.3.579.2.12 59 1991 Unknown [id number] 2.16.840.1.482117.3.579.2.12 59 1991 Unknown [id number] 2.16.840.1.702371.3.579.2.12 59 1959 Self-pay [id number] Social History Date Type Detail Facility Tobacco smoking stat [facility] Tobacco smoking consumption unknown [facility] Start: 03-08-2023 [facility] Start: 1990 Sex Assigned At Female [facility] Start: 04-18-2023 Gender identity Identifies as female gender (finding) [facility] Sexual orientation Not on file [facility] History of Present illness Narrative 06-15-2023 Dinora Marin, ELIGIBILITY CLERK - 06/15/2023 3:20 PM EST Note Date [...] nursing note reviewed. Exam conducted with a floor technician present. Vitals: There is no height or [...] DATE CREATED AUTHOR AUTHOR'S ORGANIZ ATION 10/28/2023 [facility] EPIC Reason for Visit (unrecogniz [...] BE BASED ON THE PRIMARY CLINICAL RECORDS. [employer]. provides no warranty or guarantee of the accuracy or completeness of information in this document.
== END 2023-11-02 15:11 | disposition home or self-care (01) ==
LOC: NOMS 15:10
PROVIDERS: Visit Provider Obstetrics & Gynecology
DX: O09.293 Supervision of pregnancy with other poor reproductive or obstetric history, third trimester (principal); Z3A.36 36 weeks gestation of pregnancy
CPT/HCPCS: 76816

== ENCOUNTER 2023-11-02 20:29 | Outpatient (REF) | payer OTHER, SELFPAY ==
--- OUTSIDE RECORDS SUMMARY | 2023-11-02 20:34 | XMS_ITS | CCD ---
Author Organization [facility] Care Team Providers Care Security Control Room Officer Name Role Phone DR BARBARA BEAULIEU Attending [...] Low,>-Panic High,A-Abnormal,AA-Critical Abnormal Performed at: 01 =G [address] [address] Belinda Rosenberg MD, HPV APTIMA Negative Negative [facility] Comment on above: This nucleic acid am plification test detects fourteen high- risk HPV types (16,18,31,33,35,39,45,51,52,56,58,59,66,68) without differentiation. Performed at: = - [address] [id number] Computer Tester: Belinda Rosenberg MD, Phone: [phone] Performed at: - [address] [id number] Computer Tester: Belinda Rosenberg MD, Phone: [phone] IGP, APTIMA HPV, RFX 16/18,45 Note . [facility] Comment on above: TESTS RESULT FLAG UN ITS REF RANGE LAB DIAGNOSIS: 02 NEGATIVE FOR INTRAEPITHELIAL LESION OR MALIGNANCY. Specimen adequacy: 02 Satisfactory for evaluation. Endocervical and/or squamous metaplastic cells (endocervical component) are present. Performed by: 02 Joe Gonzalez Route Cdl Driver ([facility]) . 02 Note: Note 02 [...] Low,>-Panic High,A-Abnormal,AA-Critical Abnormal Performed at: [address] [address] Belnida Rosenberg MD, SPATULA-ALONE ENDOCERVIX CLINISYNC [facility] Si[facility]car e Urinalysis macro (dipstick) panel (U)on 06-15-2023 Bilirubin, UA Negative Negative - 4(70) +++ mg/dL [facility] XIFIN Blood, UA Negative Negative - 50 Bonifacio/mcL [facility] XIFIN Clarity, UA Clear [facility] Healthca re Color, UA Yellow [facility] milabent e Glucose, UA Negative Negative - 1999(110) ++++ mg/dL [facility] Interpretation and review of laboratory results Normal [facility] Ketones, UA Negative Negative - 160(16) ++++ mg/dL [facility] Leukocytes, UA Negative Negative - 500+++ Shahrzad/mcL [facility] Nitrite, UA Negative Negative - Positive [facility] pH, UA 5.5 5 - 9 [facility] Protein, UA Negative Negative - 2000(20) ++++ mg/dL [facility] Spec Grav, UA 1.020 1 - 1.03 [facility] Urobilinogen, UA 1.0 0.2 - 12 mg/dL [facility] Vital Signs Date Time Vital Sign Value Performing Clinician Sharonda lity 06-15-2023 15:48-0500 Body weight 92.53 kg Barbara Christofer DO Work Phone: [facility] 06-15-2023 15:48-0500 Diastolic blood pressure 74 mm[Hg] Barbara Christofer DO Work Phone: [facility] 06-15-2023 15:48-0500 Systolic blood pressure 120 mm[Hg] Barbara Christofer DO Work Phone: [facility] Encounters Encounter Date Encounter Type [...] 18-39 yrs Barbara Beaulieu DO Work Phone: [facility] Comment on above: Second trimester [...] Routine [facility] [address] [place] [address] Jney Modi PA [address] [place] [address] [facility] Start: 07-13-2023 End: 07-13-2023 Professional / ancillary services management 07/13/2023 2:00 PM EST Ancillary Procedure [facility] [address] [place] [address] [facility] Start: 06-15-2023 End: 09-13-2023 Alpha fetoprotein, maternal Alpha fetoprotein, maternal Lab Routine Second trimester Expected: 06/15/2023 (Approximate), Expires: 09/13/2023 [facility] Comment on above: Expected: 06/15/2023 (Approximate), Expires: 09/13/2023 Start: 06-15-2023 End: 06-15-2024 US for US OB ANATOMY SINGLE W US OB CERVICAL LENGTH Imaging Routine Screening, , for anatomic survey Expected: 06/15/2023 (Approximate), Expires: 06/15/2024 [facility] Comment on above: Expected: 06/15/2023 (Approximate), Expires: 06/15/2024 CHLAMYDIA TRACHOMATI S (GENITO/STI) CHLAMYDIA TRACHOMATIS (GENITO/STI) Lab Routine Exposure to STD Ordered: 06/15/2023 [facility] Comment on above: Ordered: 06/15/2023 Cytology Cervical or vaginal smear or scraping study Pap Smear Pathology and Cytology Routine Well woman exam with routine gynecological exam Ordered: 06/15/2023 [facility] Work Phone: Comment on above: Ordered: 06/15/2023 Human papilloma viru s DNA [Presence] in Unspecified specimen by Probe with amplification HPV DNA probe, amplified Microbiology Routine Well woman exam with routine gynecological exam Ordered: 06/15/2023 [facility] Comment on above: Ordered: 06/15/2023 Measurement of gluco se 1 hour after glucose challenge for glucose tolerance test GTT, 1 hour Lab Routine Family history of gestational diabetes mellitus (GDM) Ordered: 06/15/2023 [facility] Comment on above: Ordered: 06/15/2023 Neisseria gonorrhoea e DNA [Presence] in Unspecified specimen by SHAILA with probe detection Neisseria gonorrhea DNA probe, direct Lab Routine Exposure to STD Ordered: 06/15/2023 [facility] Comment on above: Ordered: 06/15/2023 SURESWAB(R) ADVANCED VAGINITIS PLUS, TMA SURESWAB(R) ADVANCED VAGINITIS PLUS, TMA Pathology and Cytology Routine Vaginal discharge Ordered: 06/15/2023 [facility] Comment on above: Ordered: 06/15/2023 Payers Date Payer Category Payer Unknown [employer] [id number] 2022-Present [phone] [address] [address] [place] [address] [id number] 2022 Unknown [id number] 1991 Unknown [id number] 2.16.840.1.987764.3.579.2.59 3 1991 Unknown [id number] 2.16.840.1.698814.3.579.2.12 59 1991 Unknown [id number] 2.16.840.1.078797.3.579.2.12 59 1991 Unknown [id number] 2.16.840.1.395893.3.579.2.12 59 1991 Unknown [id number] 2.16.840.1.409171.3.579.2.12 59 1991 Unknown [id number] 2.16.840.1.681420.3.579.2.12 59 1991 Unknown [id number] 2.16.840.1.928684.3.579.2.12 59 1991 Unknown [id number] 2.16.840.1.944881.3.579.2.12 59 1991 Unknown [id number] 2.16.840.1.673641.3.579.2.12 59 1991 Unknown [id number] 2.16.840.1.058021.3.579.2.12 59 1991 Unknown [id number] 2.16.840.1.152924.3.579.2.12 59 1959 Self-pay [id number] Social History Date Type Detail Facility Tobacco smoking stat [facility] Tobacco smoking consumption unknown [facility] Start: 03-08-2023 [facility] Start: 1991 Sex Assigned At Female [facility] Start: 04-18-2023 Gender identity Identifies as female gender (finding) [facility] Sexual orientation Not on file [facility] History of Present illness Narrative 06-15-2023 Dinora Marin, RIVET MACHINE OPERATOR - 06/15/2023 3:20 PM EST Note Date [...] nursing note reviewed. Exam conducted with a reproduction technician present. Vitals: There is no height [...] DATE CREATED AUTHOR AUTHOR'S ORGANIZ ATION 10/28/2023 [facility] dical Specialists EPIC Reason for Visit [...] BE BASED ON THE PRIMARY CLINICAL RECORDS. [employer] provides no warranty or guarantee of the accuracy or completeness of information in this document.
== END 2023-11-02 20:30 | disposition home or self-care (01) ==
LOC: LAB 20:29
PROVIDERS: Visit Provider Obstetrics & Gynecology
DX: Z34.93 Encounter for supervision of normal pregnancy, unspecified, third trimester (principal); Z3A.36 36 weeks gestation of pregnancy
CPT/HCPCS: 87081

== ENCOUNTER 2023-11-03 17:18 | Outpatient (OUT) | payer OTHER, SELFPAY ==
--- OUTSIDE RECORDS SUMMARY | 2023-11-03 17:25 | XMS_ITS | CCD ---
Author Organization [facility] Care Team Providers Care Brass Wind Instrument Maker Name Role Phone DR BARBARA BEAULIEU Attending [...] Low,>-Panic High,A-Abnormal,AA-Critical Abnormal Performed at: 01 =G [address] [address] Belinda Rosenberg MD, HPV APTIMA Negative Negative [email or web address] Comment on above: This nucleic acid am plification test detects fourteen high- risk HPV types (16,18,31,33,35,39,45,51,52,56,58,59,66,68) without differentiation. Performed at: = - [address] [id number] Customer Trainer: Belinda Rosenberg MD, Phone: [phone] Performed at: - [address] [id number] Customer Trainer: Belinda Rosenberg MD, Phone: [phone] IGP, APTIMA HPV, RFX 16/18,45 Note . [facility] Comment on above: TESTS RESULT FLAG UN ITS REF RANGE LAB DIAGNOSIS: 02 NEGATIVE FOR INTRAEPITHELIAL LESION OR MALIGNANCY. Specimen adequacy: 02 Satisfactory for evaluation. Endocervical and/or squamous metaplastic cells (endocervical component) are present. Performed by: 02 Joe Gonzalez Hone Operator ([facility]) . 02 Note: Note 02 The [...] High,A-Abnormal,AA-Critical Abnormal Performed at: [address] [address] Belinda Rosenberg MD, SPATULA-ALONE ENDOCERVIX CLINISYNC [facility] [email or web address] e Urinalysis macro (dipstick) panel (U)on 06-15-2023 Bilirubin, UA Negative Negative - 4(70) +++ mg/dL [facility] Stereotypes Blood, UA Negative Negative - 50 Bonifacio/mcL [facility] Stereotypes Clarity, UA Clear [facility] Health[facility] re Color, UA Yellow [facility] C[facility]oom[facility] e Glucose, UA Negative Negative - 1999(110) ++++ mg/dL [facility] Interpretation and review of laboratory results Normal [facility] Ketones, UA Negative Negative - 160(16) ++++ mg/dL [facility] Leukocytes, UA Negative Negative - 500+++ Shahrzad/mcL [facility] Nitrite, UA Negative Negative - Positive [facility] pH, UA 5.5 5 - 9 [facility] Protein, UA Negative Negative - 2000(20) ++++ mg/dL [facility] Spec Grav, UA 1.020 1 - 1.03 [facility] Urobilinogen, UA 1.0 0.2 - 12 mg/dL [facility] Vital Signs Date Time Vital Sign Value Performing Clinician Sharonda lity 06-15-2023 15:48-0500 Body weight 92.53 kg Barbara Christofer DO Work Phone: [facility] 06-15-2023 15:48-0500 Diastolic blood pressure 74 mm[Hg] Barbara Christofer DO Work Phone: [facility] 06-15-2023 15:48-0500 Systolic blood pressure 120 mm[Hg] Barbara Hcristofer DO Work Phone: [facility] Encounters Encounter Date Encounter Type [...] 18-39 yrs Barbara Beaulieu DO Work Phone: [facility] Comment on above: Second [...] Routine [facility] [address] [place] [address] Jeny Modi PA [address] [place] [address] [facility] Start: 07-13-2023 End: 07-13-2023 Professional / ancillary services management 07/13/2023 2:00 PM EST Ancillary Procedure [facility] [address] [place] [address] [facility] Start: 06-15-2023 End: 09-13-2023 Alpha fetoprotein, maternal Alpha fetoprotein, maternal Lab Routine Second trimester Expected: 06/15/2023 (Approximate), Expires: 09/13/2023 [facility] Comment on above: Expected: 06/15/2023 (Approximate), Expires: 09/13/2023 Start: 06-15-2023 End: 06-15-2024 US for US OB ANATOMY SINGLE W US OB CERVICAL LENGTH Imaging Routine Screening, , for anatomic survey Expected: 06/15/2023 (Approximate), Expires: 06/15/2024 [facility] Comment on above: Expected: 06/15/2023 (Approximate), Expires: 06/15/2024 CHLAMYDIA TRACHOMATI S (GENITO/STI) CHLAMYDIA TRACHOMATIS (GENITO/STI) Lab Routine Exposure to STD Ordered: 06/15/2023 [facility] Comment on above: Ordered: 06/15/2023 Cytology Cervical or vaginal smear or scraping study Pap Smear Pathology and Cytology Routine Well woman exam with routine gynecological exam Ordered: 06/15/2023 [facility] Work Phone: Comment on above: Ordered: 06/15/2023 Human papilloma viru s DNA [Presence] in Unspecified specimen by Probe with amplification HPV DNA probe, amplified Microbiology Routine Well woman exam with routine gynecological exam Ordered: 06/15/2023 [facility] Comment on above: Ordered: 06/15/2023 Measurement of gluco se 1 hour after glucose challenge for glucose tolerance test GTT, 1 hour Lab Routine Family history of gestational diabetes mellitus (GDM) Ordered: 06/15/2023 [facility] Comment on above: Ordered: 06/15/2023 Neisseria gonorrhoea e DNA [Presence] in Unspecified specimen by SHAILA with probe detection Neisseria gonorrhea DNA probe, direct Lab Routine Exposure to STD Ordered: 06/15/2023 [facility] Comment on above: Ordered: 06/15/2023 SURESWAB(R) ADVANCED VAGINITIS PLUS, TMA SURESWAB(R) ADVANCED VAGINITIS PLUS, TMA Pathology and Cytology Routine Vaginal discharge Ordered: 06/15/2023 [facility] Comment on above: Ordered: 06/15/2023 Payers Date Payer Category Payer Unknown [employer] [id number] 2022-Present [phone] [address] [address] [place] [address] [id number]. [id number] 2022 Unknown [id number] 1991 Unknown [id number] 2.16.840.1.176782.3.579.2.59 3 1991 Unknown [id number] 2.16.840.1.340236.3.579.2.12 59 1991 Unknown [id number] 2.16.840.1.254241.3.579.2.12 59 1991 Unknown [id number] 2.16.840.1.848278.3.579.2.12 59 1991 Unknown [id number] 2.16.840.1.124780.3.579.2.12 59 1991 Unknown [id number] 2.16.840.1.993795.3.579.2.12 59 1991 Unknown [id number] 2.16.840.1.158241.3.579.2.12 59 1991 Unknown [id number] 2.16.840.1.613944.3.579.2.12 59 1991 Unknown [id number] 2.16.840.1.142479.3.579.2.12 59 1991 Unknown [id number] 2.16.840.1.254649.3.579.2.12 59 1991 Unknown [id number] 2.16.840.1.414626.3.579.2.12 59 1959 Self-pay [id number] Social History Date Type Detail Facility Tobacco smoking stat [facility] Tobacco smoking consumption unknown [facility] Start: 03-08-2023 [facility] Start: 1991 Sex Assigned At Female [facility] Start: 04-18-2023 Gender identity Identifies as female gender (finding) [facility] Sexual orientation Not on file [facility] History of Present illness Narrative 06-15-2023 Dinora Marin, SITE MONITOR - 06/15/2023 3:20 PM EST Note Date [...] nursing note reviewed. Exam conducted with a teller coordinator present. Vitals: There is no height or [...] DATE CREATED AUTHOR AUTHOR'S ORGANIZ ATION 10/28/2023 [facility] dical Specialists EPIC Reason for Visit [...] BE BASED ON THE PRIMARY CLINICAL RECORDS. [employer]. provides no warranty or guarantee of the accuracy or completeness of information in this document.
[2023-11-03 17:28] VITALS: BP 140/88; PULSE 96
[2023-11-03] MEDS: BETAMETHASONE ACE/BETAMETHASONE SOD PHOS 30 MG/5 ML 12 MG IM (17:32)
--- OUTSIDE RECORDS SUMMARY | 2023-11-04 12:15 | XMS_ITS | CCD ---
Author Organization [facility] Care Team Providers Care Funder Name Role Phone DR BARBARA BEAULIEU Attending Unavailable CHRISTOFER, DR JIMENEZ Admitting Unavailable Unavailable Primary Care Provider UnavailBARBARA Gutierrez Attending Unavailable JENY MODI Attending Unavailable CHRISTOFER, BARBARA Attending Unavailable CHRISTOFER, BARBARA Attending Unavailable JENY MODI Attending Unavailable JENY MODI Attending Unavailable CHRISTOFER, BARBARA Attending Unavailable PABLO FLORES Attending Unavailable JENY MODI Referring Unavailable BARBARA BEAULIEU Attending Unavailable CHRISTOFER, BARBARA Attending Unavailable Problems Problem Classification Problem Date [...] Other.............. No. of containers..01 ThinPrep Vial Age Stewarto ÓSCAR Yisel... 31 FLAG LEGEND: L-Low Normal,H-High Normal,LL-Alert Low,HH-Alert High <-Panic Low,>-Panic High,A-Abnormal,AA-Critical Abnormal Performed at: 01 =G [address] [address] Belinda Rosenberg MD, HPV APTIMA Negative Negative [facility] Comment on above: This nucleic acid am plification test detects fourteen high- risk HPV types (16,18,31,33,35,39,45,51,52,56,58,59,66,68) without differentiation. Performed at: =[address] [id number] Telephone Cleaner: Belinda Rosenberg MD, Phone: [phone] Performed at: - [address] [id number] Telephone Cleaner: Belinda Rosenberg MD, Phone: [phone] IGP, APTIMA HPV, RFX 16/18,45 Note . [facility] Comment on above: TESTS RESULT FLAG UN ITS REF RANGE LAB DIAGNOSIS: 02 NEGATIVE FOR INTRAEPITHELIAL LESION OR MALIGNANCY. Specimen adequacy: 02 Satisfactory for evaluation. Endocervical and/or squamous metaplastic cells (endocervical component) are present. Performed by: 02 Joe Gonzalez Pourer Bull Ladle ([facility]) . 02 Note: Note 02 The [...] Low,>-Panic High,A-Abnormal,AA-Critical Abnormal Performed at: [address] [place] [address] Belinda Rosenberg MD, SPATULA-ALONE ENDOCERVIX CLINISYNC [facility] Health[facility] e Urinalysis macro (dipstick) panel (U)on 06-15-2023 Bilirubin, UA Negative Negative - 4(70) +++ mg/dL [facility] Blood, UA Negative Negative - 50 Bonifacio/mcL [facility] Clarity, UA Clear [facility] Health[facility] re Color, UA Yellow [facility] HealthPurer Skin e Glucose, UA Negative Negative - 1999(110) ++++ mg/dL [facility] Interpretation and review of laboratory results Normal [facility] Ketones, UA Negative Negative - 160(16) ++++ mg/dL [facility] Leukocytes, UA Negative Negative - 500+++ Shahrzad/mcL [facility] Nitrite, UA Negative Negative - Positive [facility] pH, UA 5.5 5 - 9 [facility] Healthcar e Protein, UA Negative Negative - 1999(20) ++++ mg/dL [facility] Spec Grav, UA 1.020 1 - 1.03 [facility] Urobilinogen, UA 1.0 0.2 - 12 mg/dL [facility] Healthcar e Vital Signs Date Time Vital Sign Value Performing Clinician Sharonda lorenz 06-15-2023 15:48-0500 Body weight 92.53 kg Barbara Christofer DO Work Phone: [facility] 06-15-2023 15:48-0500 Diastolic blood pressure 74 mm[Hg] Barbara Christofer DO Work Phone: [facility] 06-15-2023 15:48-0500 Systolic blood pressure 120 mm[Hg] Barbara Christofer DO Work Phone: [facility] Encounters Encounter Date Encounter Type Care Provider Facility Start: 11-02-2023 End: 11-02-2023 ambulatory BARBARA CHRISTOFER Not Available Start: 10-26-2023 End: 10-26-2023 ambulatory BARBARA CHRISTOFER Not Available Start: 10-11-2023 End: 10-11-2023 ambulatory PABLO Haque PETRIGOBERTOLou Not Available Start: 10-10-2023 End: 10-10-2023 ambulatory [...] 06-15-2023 End: 06-15-2023 Patient encounter procedure Barbara Beaulieu DO Work Phone: [facility] Start: 06-15-2023 End: 06-15-2023 Periodic preventive med est patient 18-39 yrs Barbara Beaulieu DO Work Phone: [facility] Comment on above: Second trimester pre gnancy; Well woman exam with routine gynecological exam; Exposure to STD; Vaginal discharge; Screening, , for anatomic survey; Family history of gestational diabetes mellitus (GDM) Start: 06-15-2023 End: 06-15-2023 ambulatory BARBARA CHRISTOFER Not Available Start: 06-15-2023 Cl[facility] Result Encounter Barbara Beaulieu DO Work Phone: [facility] Unsolicited Start: 06-15-2023 Clinisync Result Encounter Barbara Beaulieu DO Work Phone: [facility] Unsolicited [...] Routine [facility] [address] [place] [id number] Jeny Modi PA [address] [place] [address] [facility] Start: 07-13-2023 End: 07-13-2023 Professional / ancillary services management 07/13/2023 2:00 PM EST Ancillary Procedure [facility] [address] [place] [address] [facility] Start: 06-15-2023 End: 09-13-2023 Alpha fetoprotein, maternal Alpha fetoprotein, maternal Lab Routine Second trimester Expected: 06/15/2023 (Approximate), Expires: 09/13/2023 [facility] Comment on above: Expected: 06/15/2023 (Approximate), Expires: 09/13/2023 Start: 06-15-2023 End: 06-15-2024 US for US OB ANATOMY SINGLE W US OB CERVICAL LENGTH Imaging Routine Screening, , for anatomic survey Expected: 06/15/2023 (Approximate), Expires: 06/15/2024 [facility] Comment on above: Expected: 06/15/2023 (Approximate), Expires: 06/15/2024 CHLAMYDIA TRACHOMATI S (GENITO/STI) CHLAMYDIA TRACHOMATIS (GENITO/STI) Lab Routine Exposure to STD Ordered: 06/15/2023 [facility] Comment on above: Ordered: 06/15/2023 Cytology Cervical or vaginal smear or scraping study Pap Smear Pathology and Cytology Routine Well woman exam with routine gynecological exam Ordered: 06/15/2023 [facility] Work Phone: Comment on above: Ordered: 06/15/2023 Human papilloma viru s DNA [Presence] in Unspecified specimen by Probe with amplification HPV DNA probe, amplified Microbiology Routine Well woman exam with routine gynecological exam Ordered: 06/15/2023 [facility] Comment on above: Ordered: 06/15/2023 Measurement of gluco se 1 hour after glucose challenge for glucose tolerance test GTT, 1 hour Lab Routine Family history of gestational diabetes mellitus (GDM) Ordered: 06/15/2023 [facility] Comment on above: Ordered: 06/15/2023 Neisseria gonorrhoea e DNA [Presence] in Unspecified specimen by SHAILA with probe detection Neisseria gonorrhea DNA probe, direct Lab Routine Exposure to STD Ordered: 06/15/2023 [facility] Comment on above: Ordered: 06/15/2023 SURESWAB(R) ADVANCED VAGINITIS PLUS, TMA SURESWAB(R) ADVANCED VAGINITIS PLUS, TMA Pathology and Cytology Routine Vaginal discharge Ordered: 06/15/2023 [facility] Comment on above: Ordered: 06/15/2023 Payers Date Payer Category Payer Unknown [employer] [id number] 2022-Present [phone] [address] [address] [place] [address] [id number] 2022 Unknown [id number] 1991 Unknown [id number] 2.16.840.1.726537.3.579.2.59 3 1991 Unknown [id number] 2.16.840.1.739377.3.579.2.12 59 1991 Unknown [id number] 2.16.840.1.907240.3.579.2.12 59 1991 Unknown [id number] 2.16.840.1.635197.3.579.2.12 59 1991 Unknown [id number] 2.16.840.1.382239.3.579.2.12 59 1991 Unknown [id number] 2.16.840.1.167513.3.579.2.12 59 1991 Unknown [id number] 2.16.840.1.374264.3.579.2.12 59 1991 Unknown [id number] 2.16.840.1.848183.3.579.2.12 59 1991 Unknown [id number] 2.16.840.1.752901.3.579.2.12 59 1991 Unknown [id number] 2.16.840.1.113213.3.579.2.12 59 1991 Unknown [id number] 2.16.840.1.644314.3.579.2.12 59 1991 Unknown [id number] 2.16.840.1.404971.3.579.2.12 59 1959 Self-pay [id number] Social History Date Type Detail Facility Tobacco smoking stat [facility] Tobacco smoking consumption unknown [facility] Start: 03-08-2023 [facility] Start: 1991 Sex Assigned At Female [facility] Start: 04-18-2023 Gender identity Identifies as female gender (finding) [facility] Sexual orientation Not on file [facility] History of Present illness Narrative 06-15-2023 Dinora Marin, STRATEGIC PLANNING DIRECTOR - 06/15/2023 3:20 PM EST Note Date [...] nursing note reviewed. Exam conducted with a vascular ultrasound technologist present. Vitals: There is no height or [...] and content) DATE CREATED AUTHOR 09/19/2020 [facility] DATE CREATED AUTHOR AUTHOR'S ORGANIZ ATION 11/04/2023 [facility] dical Specialists [facility] Reason for Visit (unrecogniz ed section and [...] BE BASED ON THE PRIMARY CLINICAL RECORDS. [facility] [employer] [facility]. provides no warranty or guarantee of the accuracy or completeness of information in this document.
== END 2023-11-03 17:40 | disposition home or self-care (01) ==
LOC: FBC 17:39 → INF 11-04 12:11
PROVIDERS: Visit Provider Obstetrics & Gynecology
DX: O16.3 Unspecified maternal hypertension, third trimester (principal); Z3A.36 36 weeks gestation of pregnancy
CPT/HCPCS: 96372; J0702

== ENCOUNTER 2023-11-05 06:09 | Outpatient (OUT) | payer OTHER, SELFPAY ==
--- OUTSIDE RECORDS SUMMARY | 2023-11-05 06:12 | XMS_ITS | CCD ---
Author Organization [facility] Care Team Providers Care Claim Inspector Name Role Phone DR BARBARA BEAULIEU Attending [...] Low,>-Panic High,A-Abnormal,AA-Critical Abnormal Performed at: 01 =G [address] [address] Belinda Rosenberg MD, HPV APTIMA Negative Negative [facility] Comment on above: This nucleic acid am plification test detects fourteen high- risk HPV types (16,18,31,33,35,39,45,51,52,56,58,59,66,68) without differentiation. Performed at: =[address] [id number] Care Management Specialist: Belinda Rosenberg MD, Phone: [phone] Performed at: - [address] [id number] Care Management Specialist: Belinda Rosenberg MD, Phone: [phone] IGP, APTIMA HPV, RFX 16/18,45 Note . [facility] Comment on above: TESTS RESULT FLAG UN ITS REF RANGE LAB DIAGNOSIS: 02 NEGATIVE FOR INTRAEPITHELIAL LESION OR MALIGNANCY. Specimen adequacy: 02 Satisfactory for evaluation. Endocervical and/or squamous metaplastic cells (endocervical component) are present. Performed by: 02 Joe Gonzalez Terrazzo Installer ([facility]) . 02 Note: Note 02 The [...] Low,>-Panic High,A-Abnormal,AA-Critical Abnormal Performed at: [address], [place] [address] Belinda Rosenberg MD, [facility] Urinalysis macro (dipstick) panel (U)on 06-15-2023 Bilirubin, UA Negative Negative - 4(70) +++ mg/dL [facility] Blood, UA Negative Negative - 50 Bonifacio/mcL [facility] Clarity, UA Clear [facility] Color, UA Yellow [facility] Glucose, UA Negative Negative - 1999(110) ++++ mg/dL [facility] Interpretation and review of laboratory results Normal [facility] Ketones, UA Negative Negative - 160(16) ++++ mg/dL [facility] Leukocytes, UA Negative Negative - 500+++ Shahrzad/mcL [facility] Nitrite, UA Negative Negative - Positive [facility] pH, UA 5.5 5 - 9 [facility] Health[facility] Protein, UA Negative Negative - 1999(20) ++++ mg/dL [facility] Spec Grav, UA 1.020 1 - 1.03 [facility] Urobilinogen, UA 1.0 0.2 - 12 mg/dL [facility] Vital Signs Date Time Vital Sign Value Performing Clinician Sharonda lorenz 06-15-2023 15:48-0500 Body weight 92.53 kg Barbara Christofer DO Work Phone: [facility] 06-15-2023 15:48-0500 Diastolic blood pressure 74 mm[Hg] Barbara Christofer DO Work Phone: [facility] 06-15-2023 15:48-0500 Systolic blood pressure 120 mm[Hg] Barbara Christofer DO Work Phone: [facility] Encounters Encounter Date Encounter Type Care [...] [facility] [address] [place] [id number] Jeny Modi PA [address] [place] [address] [facility] Start: 07-13-2023 End: 07-13-2023 Professional / ancillary services management 07/13/2023 2:00 PM EST Ancillary Procedure [facility] [address] [place] [address] [facility] Start: 06-15-2023 End: 09-13-2023 Alpha fetoprotein, maternal Alpha fetoprotein, maternal Lab Routine Second trimester Expected: 06/15/2023 (Approximate), Expires: 09/13/2023 [facility] Comment on above: Expected: 06/15/2023 (Approximate), Expires: 09/13/2023 Start: 06-15-2023 End: 06-15-2024 US for US OB ANATOMY SINGLE W US OB CERVICAL LENGTH Imaging Routine Screening, , for anatomic survey Expected: 06/15/2023 (Approximate), Expires: 06/15/2024 [facility] Comment on above: Expected: 06/15/2023 (Approximate), Expires: 06/15/2024 CHLAMYDIA TRACHOMATI S (GENITO/STI) CHLAMYDIA TRACHOMATIS (GENITO/STI) Lab Routine Exposure to STD Ordered: 06/15/2023 [facility] Comment on above: Ordered: 06/15/2023 Cytology Cervical or vaginal smear or scraping study Pap Smear Pathology and Cytology Routine Well woman exam with routine gynecological exam Ordered: 06/15/2023 [facility] Work Phone: Comment on above: Ordered: 06/15/2023 Human papilloma viru s DNA [Presence] in Unspecified specimen by Probe with amplification HPV DNA probe, amplified Microbiology Routine Well woman exam with routine gynecological exam Ordered: 06/15/2023 [facility] Comment on above: Ordered: 06/15/2023 Measurement of gluco se 1 hour after glucose challenge for glucose tolerance test GTT, 1 hour Lab Routine Family history of gestational diabetes mellitus (GDM) Ordered: 06/15/2023 [facility] Comment on above: Ordered: 06/15/2023 Neisseria gonorrhoea e DNA [Presence] in Unspecified specimen by SHAILA with probe detection Neisseria gonorrhea DNA probe, direct Lab Routine Exposure to STD Ordered: 06/15/2023 [facility] Comment on above: Ordered: 06/15/2023 SURESWAB(R) ADVANCED VAGINITIS PLUS, TMA SURESWAB(R) ADVANCED VAGINITIS PLUS, TMA Pathology and Cytology Routine Vaginal discharge Ordered: 06/15/2023 [facility] Comment on above: Ordered: 06/15/2023 Payers Date Payer Category Payer Unknown [employer] [id number] 2022-Present [phone] [address] [address] [place] [address] [id number] 2022 Unknown [id number] 1990 Unknown [id number] 2.16.840.1.631039.3.579.2.59 3 1991 Unknown [id number] 2.16.840.1.580093.3.579.2.12 59 1991 Unknown [id number] 2.16.840.1.093288.3.579.2.12 59 1991 Unknown [id number] 2.16.840.1.518550.3.579.2.12 59 1991 Unknown [id number] 2.16.840.1.339965.3.579.2.12 59 1991 Unknown [id number] 2.16.840.1.634854.3.579.2.12 59 1991 Unknown [id number] 2.16.840.1.436283.3.579.2.12 59 1991 Unknown [id number] 2.16.840.1.690631.3.579.2.12 59 1991 Unknown [id number] 2.16.840.1.212885.3.579.2.12 59 1991 Unknown [id number] 2.16.840.1.511878.3.579.2.12 59 1991 Unknown [id number] 2.16.840.1.204281.3.579.2.12 59 1991 Unknown [id number] 2.16.840.1.853941.3.579.2.12 59 1958 Self-pay [id number] Social History Date Type Detail Facility Tobacco smoking stat [facility] Tobacco smoking consumption unknown [facility] Start: 03-08-2023 [facility] Start: 1990 Sex Assigned At Female [facility] Start: 04-18-2023 Gender identity Identifies as female gender (finding) [facility] Sexual orientation Not on file [facility] History of Present illness Narrative 06-15-2023 Dinora Marin, CONTINUING EDUCATION DEAN - 06/15/2023 3:20 PM EST Note Date [...] nursing note reviewed. Exam conducted with a outboard motor mechanic present. Vitals: There is no height or [...] content) DATE CREATED AUTHOR 09/19/2020 [facility] DATE CREATED AUTHOR AUTHOR'S ORGANIZ ATION 11/04/2023 [facility] Reason for Visit (unrecogniz ed section and [...] BE BASED ON THE PRIMARY CLINICAL RECORDS. [facility] [employer] [facility]. provides no warranty or guarantee of the accuracy or completeness of information in this document.
[2023-11-05 09:20] VITALS: BP 141/88; PULSE 68
== END 2023-11-05 09:31 | disposition home or self-care (01) ==
LOC: FBCO 06:09 → FBC 09:02
PROVIDERS: Visit Provider Obstetrics & Gynecology
DX: O09.293 Supervision of pregnancy with other poor reproductive or obstetric history, third trimester (principal); Z3A.00 Weeks of gestation of pregnancy not specified
CPT/HCPCS: 59025

== ENCOUNTER 2023-11-09 07:01 | Outpatient (OUT) | payer OTHER, SELFPAY ==
--- OUTSIDE RECORDS SUMMARY | 2023-11-09 07:04 | XMS_ITS ---
Patient Summarization (C-CDA 2.1 CCD) Created on: November 09, 2023 JEANA BATRES~JO BROTHERS : 1990 Sex: Female Author Organization Sample organization Care Team Providers Care Sales Superintendent Name Role Phone DR BARBARA BEAULIEU Attending Unavailable CHRSITOFER, DR JIMENEZ Admitting Unavailable Unavailable Primary Care Provider Unavailluz e CHRISTOFER, BARBARA Attending Unavailable LY, JENY Attending Unavailable CHRISTOFER, BARBARA Attending Unavailable CHRISTOFER, BARBARA Attending Unavailable LY, JENY Attending Unavailable LY, JENY Attending Unavailable CHRISTOFER, BARBARA Attending Unavailable PETITTI, PABLO A Attending Unavailable LY, JENY Referring Unavailable CHRISTOFER, BARBARA Attending Unavailable CHRISTOFER, BARBARA Attending Unavailable Encounters Encounter Date Encounter Type Care Provider Facility Start: 11-02-2023 End: 11-02-2023 ambulatory BARBARA CHRISTOFER Not Available Start: 10-26-2023 End: 10-26-2023 ambulatory BARBARA CHRISTOFER Not Available Start: 10-11-2023 End: 10-11-2023 ambulatory PABLO A PETITTI Not Available Start: 10-10-2023 End: 10-10-2023 ambulatory [...] 09-19-[address] BARBARA BEAULIEU Facility : Payers Date Payer Category Payer Unknown [employer] [id number] 2022-Present [phone] [address] [address] [place] [address] [id number]. [id number] 2022 Unknown [id number] 1990 Unknown [id number] 2..840.1.327339.3.579.2.59 3 1990 Unknown [id number] 2.16.840.1.998912.3.579.2.12 59 1991 Unknown [id number] 2.16.840.1.151714.3.579.2.12 59 1991 Unknown [id number] 2.16.840.1.129871.3.579.2.12 59 1991 Unknown [id number] 2.16.840.1.302972.3.579.2.12 59 1991 Unknown [id number] 2.16.840.1.573449.3.579.2.12 59 1991 Unknown [id number] 2.16.840.1.061071.3.579.2.12 59 1991 Unknown [id number] 2.16.840.1.278603.3.579.2.12 59 1991 Unknown [id number] 2.16.840.1.923382.3.579.2.12 59 1991 Unknown [id number] 2.16.840.1.680214.3.579.2.12 59 1991 Unknown [id number] 2.16.840.1.962386.3.579.2.12 59 1991 Unknown [id number] 2.16.840.1.254891.3.579.2.12 59 1958 Self-pay [id number] Plan of Treatment Date Care Activity Detail Author Start: 07-13-2023 End: 07-13-2023 Patient encounter procedure 07/13/2023 2:50 PM EST Routine [facility] [address] [place] [address] Jeny Colón PA [address] [place] [address] [facility] Start: 07-13-2023 End: 07-13-2023 Professional / ancillary services management 07/13/2023 2:00 PM EST Ancillary Procedure [facility] [address] [place] [address] [facility] Start: 06-15-2023 End: 09-13-2023 Alpha fetoprotein, maternal Alpha fetoprotein, maternal Lab Routine Second trimester Expected: 06/15/2023 (Approximate), Expires: 09/13/2023 [facility] Comment on above: Expected: 06/15/2023 (Approximate), Expires: 09/13/2023 Start: 06-15-2023 End: 06-15-2024 US for US OB ANATOMY SINGLE W US OB CERVICAL LENGTH Imaging Routine Screening, , for anatomic survey Expected: 06/15/2023 (Approximate), Expires: 06/15/2024 [facility] Comment on above: Expected: 06/15/2023 (Approximate), Expires: 06/15/2024 CHLAMYDIA TRACHOMATI S (GENITO/STI) CHLAMYDIA TRACHOMATIS (GENITO/STI) Lab Routine Exposure to STD Ordered: 06/15/2023 [facility] Comment on above: Ordered: 06/15/2023 Cytology Cervical or vaginal smear or scraping study Pap Smear Pathology and Cytology Routine Well woman exam with routine gynecological exam Ordered: 06/15/2023 [facility] Work Phone: Comment on above: Ordered: 06/15/2023 Human papilloma viru s DNA [Presence] in Unspecified specimen by Probe with amplification HPV DNA probe, amplified Microbiology Routine Well woman exam with routine gynecological exam Ordered: 06/15/2023 [facility] Comment on above: Ordered: 06/15/2023 Measurement of gluco se 1 hour after glucose challenge for glucose tolerance test GTT, 1 hour Lab Routine Family history of gestational diabetes mellitus (GDM) Ordered: 06/15/2023 [facility] Comment on above: Ordered: 06/15/2023 Neisseria gonorrhoea e DNA [Presence] in Unspecified specimen by SHAILA with probe detection Neisseria gonorrhea DNA probe, direct Lab Routine Exposure to STD Ordered: 06/15/2023 [facility] Comment on above: Ordered: 06/15/2023 SURESWAB(R) ADVANCED VAGINITIS PLUS, TMA SURESWAB(R) ADVANCED VAGINITIS PLUS, TMA Pathology and Cytology Routine Vaginal discharge Ordered: 06/15/2023 [facility] Comment on above: Ordered: 06/15/2023 Problems Problem Classification Problem Date Documented Da [...] [Family history of diabetes mellitus] 06-15-2023 Episodic Procedures Date Procedure Procedure Detail Performing Clinician Start: 06-15-2023 IGP,APTIMA HPV,AGE GDLN Barbara Imalogix DO Work Phone: Start: 06-15-2023 Urnls dip stick/tabl et rgnt non-auto w/o micrscp Barbara Imalogix DO Work Phone: Results Test Name Value Interpretation Reference Range Facility IGP,APTIMA HPV,AGE GDLNon AGE GDLN ACOG TESTING Note . [facility] Comment on above: TESTS RESULT FLAG U NITS REF RANGE LAB Clinician Provided Cytology Information Source.............[employer] Other.............. No. of containers..01 ThinPrep Vial Age Algo ACOG Yisel... 30-65 01 FLAG LEGEND: L-Low Normal,H-High Normal,LL-Alert Low,HH-Alert High <-Panic Low,>-Panic High,A-Abnormal,AA-Critical Abnormal Performed at: 01 =G [facility] [place] [address] Belinda Rosenberg MD, HPV APTIMA Negative Negative [facility] Comment on above: This nucleic acid am plification test detects fourteen high- risk HPV types (16,18,31,33,35,39,45,51,52,56,58,59,66,68) without differentiation. Performed at: =G - [facility], [place] [id number] Television Schedule Coordinator: Belinda Rosenberg MD, Phone: [phone] Performed at: - [facility], [place] [id number] Television Schedule Coordinator: Belinda Rosenberg MD, Phone: [phone] IGP, APTIMA HPV, RFX 16/18,45 Note . [facility] Comment on above: TESTS RESULT FLAG UN ITS REF RANGE LAB DIAGNOSIS: 02 NEGATIVE FOR INTRAEPITHELIAL LESION OR MALIGNANCY. Specimen adequacy: 02 Satisfactory for evaluation. Endocervical and/or squamous metaplastic cells (endocervical component) are present. Performed by: Anish Gonzalez, Telegraph Operator (ASCP) . 02 Note: Note 02 The Pap [...] <-Panic Low,>-Panic High,A-Abnormal,AA-Critical Abnormal Performed at: [address] [place] [address] Belinda Rosenberg MD, [facility] Healthcar e Urinalysis macro (dipstick) panel (U)on 06-15-2023 Bilirubin, UA Negative Negative - 4(70) +++ mg/dL [facility] Blood, UA Negative Negative - 50 Bonifacio/mcL [facility] Clarity, UA Clear [facility] Color, UA Yellow [facility] Health[facility] Glucose, UA Negative Negative - 1999(110) ++++ mg/dL [facility] Interpretation and review of laboratory results Normal [facility] Ketones, UA Negative Negative - 160(16) ++++ mg/dL [facility] Leukocytes, UA Negative Negative - 500+++ Shahrzad/mcL [facility] Nitrite, UA Negative Negative - Positive [facility] pH, UA 5.5 5 - 9 [facility] Healthcar e Protein, UA Negative Negative - 1999(20) ++++ mg/dL [facility] Spec Grav, UA 1.020 1 - 1.03 [facility] Urobilinogen, UA 1.0 0.2 - 12 mg/dL [facility] Social History Date Type Detail Facility Start: 04-18-2023 Gender identity Identifies as female gender (finding) [facility] Start: 03-08-2023 [facility] Start: 1990 Sex Assigned At Female N [facility] Tobacco smoking stat [facility] Tobacco smoking consumption unknown [facility] Sexual orientation Not on file [facility] thcare Vital Signs Date Time Vital Sign Value Performing Clinician Faci lity 06-15-2023 15:48-0500 Body weight 92.53 kg Barbara Beaulieu DO Work Phone: [facility] 06-15-2023 15:48-0500 Diastolic blood pressure 74 mm[Hg] Barbara Christofer DO Work Phone: [facility] Healthcare 06-15-2023 15:48-0500 Systolic blood pressure 120 mm[Hg] Barbara Lópezo DO Work Phone: [facility] Healthcare History of Present illness Narrative 06-15-2023 Dinora Marin, TROLLEY CAR OVERHAULER - 06/15/2023 3:20 PM EST Note Date [...] nursing note reviewed. Exam conducted with a gang tailer present. Vitals: There is no height or [...] content) DATE CREATED AUTHOR 09/19/2020 [facility] DATE CREATED AUTHOR 'S ORGANIZ ATION 11/04/2023 [facility] dical Specialists [facility] Reason for Visit [...] BE BASED ON THE PRIMARY CLINICAL RECORDS. [facility]. provides no warranty or guarantee of the accuracy or completeness of information in this document.
--- NOTE | 2023-11-09 14:59 | US_ITS ---
[place] [id number] Patient Name: DENEEN OSORIO MRN: [id number] date: 1990 Sex: F Assigned Patient Location: [facility] Current Patient Location: Accession/Order Number: [id number] Exam Date: 11/09/2023 15:04 Report Date: 11/09/2023 15:45 At the request of: BARBARA COMER Procedure: US OB BPP w non-stress EXAMINATION: US OB BPP w non-stress HISTORY:History of pre-eclampsia COMPARISON: Ultrasound OB biophysical 11/02/2023 TECHNIQUE: Ultrasound biophysical profile was performed in the radiology department. BREATHING MOVEMENTS: 2 GROSS BODY MOVEMENTS: 2 TONE: 2 QUALITATIVE AMNIOTIC FLUID VOLUME: 2 PRESENTATION: CEPHALIC HEART RATE: 146.74 bpm AMNIOTIC FLUID VOLUME: 10.37 cm GESTATIONAL AGE: 89 Day US/US OB BPP w non-stress IMPRESSION: Total biophysical profile score: 8 Electronically authenticated by: GREY BECKWITH Date: 11/09/2023 15:45
[2023-11-09 15:24] VITALS: BP 139/88; PULSE 88
== END 2023-11-09 15:54 | disposition home or self-care (01) ==
LOC: US 07:01 → FBC 14:51
PROVIDERS: Visit Provider Obstetrics & Gynecology
DX: O09.293 Supervision of pregnancy with other poor reproductive or obstetric history, third trimester (principal); Z3A.37 37 weeks gestation of pregnancy
CPT/HCPCS: 76818

== ENCOUNTER 2023-11-12 09:50 | Inpatient (IN) | payer OTHER, SELFPAY ==
[2023-11-12] VITALS (62 sets, daily range): BP systolic 117–161; BP diastolic 61–109; PULSE 75–118; TEMP 35.4–37.3
--- OUTSIDE RECORDS SUMMARY | 2023-11-12 07:27 | XMS_ITS | CCD ---
Author Organization 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 Name Role Phone DR BARBARA BEAULIEU Attending Unavailable CHRISTOFER, DR JIMENEZ Admitting Unavailable Unavailable Primary Care Provider UnavailBARBARA Gutierrez Attending Unavailable JENY MODI Attending Unavailable CHRISTOFER, BARBARA Attending Unavailable CHRISTOFER, BARBARA Attending Unavailable JENY MODI Attending Unavailable LYJENY BARCLAY Attending Unavailable CHRISTOFER, BARBARA Attending Unavailable PABLO FLORES Attending Unavailable JENY MODI Referring Unavailable CHRISTOFER, BARBARA Attending Unavailable CHRISTOFER, BARBARA Attending Unavailable CHRISTOFER, BARBARA Attending Unavailable Problems [...] GDLNon AGE GDLN ACOG TESTING Note . [facility] Comment on above: TESTS RESULT FLAG UN ITS REF RANGE LAB Clinician Provided Cytology Information Source.............[employer] Other.............. No. of containers..01 ThinPrep Vial Age Algo ACOG Yisel... FLAG LEGEND: L-Low Normal,H-High Normal,LL-Alert Low,HH-Alert High <-Panic Low,>-Panic High,A-Abnormal,AA-Critical Abnormal Performed at: 01 =G [address] [place] [address] Belinda Rosenberg MD, HPV APTIMA Negative Negative [facility] Comment on above: This nucleic acid am plification test detects fourteen high- risk HPV types (16,18,31,33,35,39,45,51,52,56,58,59,66,68) without differentiation. Performed at: = - [address] [id number] Mailing Manager: Belinda Rosenberg MD, Phone: [phone] Performed at: - [address] [id number] Mailing Manager: Belinda Rosenberg MD, Phone: [phone] IGP, APTIMA HPV, RFX 16/18,[address] [facility] Comment on above: TESTS RESULT FLAG ITS REF RANGE LAB DIAGNOSIS: 02 NEGATIVE FOR INTRAEPITHELIAL LESION OR MALIGNANCY. Specimen adequacy: 02 Satisfactory for evaluation. Endocervical and/or squamous metaplastic cells (endocervical component) are present. Performed by: 02 Joe Gonzalez, Chip Tuner ([facility]) . 02 Note: Note 02 [...] High,A-Abnormal,AA-Critical Abnormal Performed at: 02 [facility] [address] [place] [address] Belinda Rosenberg MD, SPATULA-ALONE ENDOCERVIX [facility]IS[facility] Urinalysis macro (dipstick) panel (U)on 06-15-2023 Bilirubin, UA Negative Negative - 4(70) +++ mg/dL [facility] [employer] Blood, UA Negative Negative - 50 Bonifacio/mcL [facility] [employer] Clarity, UA Clear [facility] Color, UA Yellow [facility] Glucose, UA Negative Negative - 1999(110) ++++ mg/dL [facility] Interpretation and review of laboratory results Normal [facility] Ketones, UA Negative Negative - 160(16) ++++ mg/dL [facility] Leukocytes, UA Negative Negative - 500+++ Shahrzad/mcL [facility] Nitrite, UA Negative Negative - Positive [facility] pH, UA 5.5 5 - [facility], [facility]A Negative Negative - 1999(20) ++++ mg/dL [facility] Spec Grav, UA 1.020 1 - 1.03 [facility] Urobilinogen, UA 1.0 0.2 - 12 mg/dL [facility] Vital Signs Date Time Vital Sign Value Performing Clinician Sharonda lorenz 06-15-2023 15:48-0500 Body weight 92.53 kg Barbara Christofer DO Work Phone: [facility] 06-15-2023 15:48-0500 Diastolic blood pressure 74 mm[Hg] Barbara Christofer DO Work Phone: [facility] 06-15-2023 15:48-0500 Systolic blood pressure 120 mm[Hg] Barbara Christofer DO Work Phone: [facility] Encounters Encounter Date Encounter Type Care Provider Facility Start: 11-09-2023 End: 11-09-2023 ambulatory BARBARA CHRISTOFER Not Available Start: 11-02-2023 End: 11-02-2023 ambulatory BARBARA CHRISTOFER Not Available Start: 10-26-2023 End: 10-26-2023 ambulatory BARBARA CHRISTOFER Not Available Start: 10-11-2023 End: 10-11-2023 ambulatory PABLO A PETRIGOBERTOI Not Available Start: 10-10-2023 End: 10-10-2023 ambulatory BARBARA CHRISTOFER Not Available Start: 09-26-2023 End: 09-26-2023 ambulatory JENY MODI Not Available Start: 09-20-2023 End: 09-20-2023 ambulatory JENY LY Not Available Start: 09-08-2023 End: 09-08-2023 ambulatory BARBARA CHRISTOFER Not Available Start: 08-11-2023 End: 08-11-2023 ambulatory BARBARA CHRISTOFER Not Available Start: 07-13-2023 End: 07-13-2023 ambulatory JENY MODI Not Available Start: 06-15-2023 End: 06-15-2023 Patient encounter procedure Barbara Beaulieu DO Work Phone: [facility] Start: 06-15-2023 End: 06-15-2023 Periodic preventive med est patient 18-39 yrs Barbara Beaulieu DO Work Phone: [facility] Comment on above: Second trimester pre gnancy; Well woman exam with routine gynecological exam; Exposure to STD; Vaginal discharge; Screening, , for anatomic survey; Family history of gestational diabetes mellitus (GDM) Start: 06-15-2023 End: 06-15-2023 ambulatory BARBARA ODOMZIO Not Available Start: 06-15-2023 [facility] Result Encounter [...] PM EST Routine [facility] [address] [place] [id number] Jeny Modi, PA [address] [place] [address] [facility] Start: 07-13-2023 End: 07-13-2023 Professional / ancillary services management 07/13/2023 2:00 PM EST Ancillary Procedure [facility] [address] [facility] [address] [id number] [facility] Start: 06-15-2023 End: 09-13-2023 Alpha fetoprotein, maternal Alpha fetoprotein, maternal Lab Routine Second trimester Expected: 06/15/2023 (Approximate), Expires: 09/13/2023 [facility] Comment on above: Expected: 06/15/2023 (Approximate), Expires: 09/13/2023 Start: 06-15-2023 End: 06-15-2024 US for US OB ANATOMY SINGLE W US OB CERVICAL LENGTH Imaging Routine Screening, , for anatomic survey Expected: 06/15/2023 (Approximate), Expires: 06/15/2024 [facility] Comment on above: Expected: 06/15/2023 (Approximate), Expires: 06/15/2024 CHLAMYDIA TRACHOMATI S (GENITO/STI) CHLAMYDIA TRACHOMATIS (GENITO/STI) Lab Routine Exposure to STD Ordered: 06/15/2023 [facility] Comment on above: Ordered: 06/15/2023 Cytology Cervical or vaginal smear or scraping study Pap Smear Pathology and Cytology Routine Well woman exam with routine gynecological exam Ordered: 06/15/2023 [facility] Work Phone: Comment on above: Ordered: 06/15/2023 Human papilloma viru s DNA [Presence] in Unspecified specimen by Probe with amplification HPV DNA probe, amplified Microbiology Routine Well woman exam with routine gynecological exam Ordered: 06/15/2023 [facility] Comment on above: Ordered: 06/15/2023 Measurement of gluco se 1 hour after glucose challenge for glucose tolerance test GTT, 1 hour Lab Routine Family history of gestational diabetes mellitus (GDM) Ordered: 06/15/2023 [facility] Comment on above: Ordered: 06/15/2023 Neisseria gonorrhoea e DNA [Presence] in Unspecified specimen by SHAILA with probe detection Neisseria gonorrhea DNA probe, direct Lab Routine Exposure to STD Ordered: 06/15/2023 [facility] Comment on above: Ordered: 06/15/2023 SURESWAB(R) ADVANCED VAGINITIS PLUS, TMA SURESWAB(R) ADVANCED VAGINITIS PLUS, TMA Pathology and Cytology Routine Vaginal discharge Ordered: 06/15/2023 [facility] Comment on above: Ordered: 06/15/2023 Payers Date Payer Category Payer Unknown [employer] [id number] 2022-Present [phone] [address] [address] [place] [address] [id number] 2022 Unknown [id number] 1991 Unknown [id number] 2.16.840.1.410773.3.579.2.59 3 1991 Unknown [id number] 2.16.840.1.272033.3.579.2.12 59 1991 Unknown [id number] 2.16.840.1.016750.3.579.2.12 59 1991 Unknown [id number] 2.16.840.1.855962.3.579.2.12 59 1991 Unknown [id number] 2.16.840.1.337748.3.579.2.12 59 1991 Unknown [id number] 2.16.840.1.092639.3.579.2.12 59 1991 Unknown [id number] 2.16.840.1.063590.3.579.2.12 59 1991 Unknown [id number] 2.16.840.1.132485.3.579.2.12 59 1991 Unknown [id number] 2.16.840.1.374881.3.579.2.12 59 1991 Unknown [id number] 2.16.840.1.470241.3.579.2.12 59 1991 Unknown [id number] 2.16.840.1.704468.3.579.2.12 59 1991 Unknown [id number] 2.16.840.1.705640.3.579.2.12 59 1991 Unknown [id number] 2.16.840.1.331446.3.579.2.12 59 1959 Self-pay [id number] Social History Date Type Detail Facility Tobacco smoking stat [facility] Tobacco smoking consumption unknown [facility] Start: 03-08-2023 [facility] Start: 1990 Sex Assigned At Female [facility] Start: 04-18-2023 Gender identity Identifies as female gender (finding) [facility] Sexual orientation Not on file [facility] History of Present illness Narrative 06-15-2023 Dinora MarinCINDI - 06/15/2023 3:20 PM EST Note Date [...] nursing note reviewed. Exam conducted with a data analytics chief scientist present. Vitals: There is no height or [...] content) DATE CREATED AUTHOR 09/19/2020 [facility] DATE CREATED AUTHOR 'S EREN ATTANG 11/10/2023 [facility] dical Specialists EPIC Reason for Visit [...] BE BASED ON THE PRIMARY CLINICAL RECORDS. [facility] [employer]. provides no warranty or guarantee of the accuracy or completeness of information in this document.
--- OUTSIDE RECORDS SUMMARY | 2023-11-12 10:02 | XMS_ITS | CCD ---
Author Organization [facility] ion [facility] Care Team Providers Care Political Advisor Name Role Phone DR BARBARA BEAULIEU Attending [...] GDLNon AGE GDLN ACOG TESTING Note . [facility] Comment on above: TESTS RESULT FLAG UN ITS REF RANGE LAB Clinician Provided Cytology Information Source.............[employer] Other.............. No. of containers..01 ThinPrep Vial Age Algo ACOG Yisel... FLAG LEGEND: L-Low Normal,H-High Normal,LL-Alert Low,HH-Alert High <-Panic Low,>-Panic High,A-Abnormal,AA-Critical Abnormal Performed at: 01 =G [address] [place] [address] Belinda Rosenberg MD, HPV APTIMA Negative Negative [facility] Comment on above: This nucleic acid am plification test detects fourteen high- risk HPV types (16,18,31,33,35,39,45,51,52,56,58,59,66,68) without differentiation. Performed at: = - [address] [id number] Learning And Development Specialist: Belinda Rosenberg MD, Phone: [phone] Performed at: - [address] [id number] Learning And Development Specialist: Belinda Rosenberg MD, Phone: [phone] IGP, APTIMA HPV, RFX 16/18,45 Note . [facility] Comment on above: TESTS RESULT FLAG ITS REF RANGE LAB DIAGNOSIS: 02 NEGATIVE FOR INTRAEPITHELIAL LESION OR MALIGNANCY. Specimen adequacy: 02 Satisfactory for evaluation. Endocervical and/or squamous metaplastic cells (endocervical component) are present. Performed by: 02 Joe Gonzalez, Industrial Maintenance Technician ([facility]) . 02 Note: Note 02 [...] High,A-Abnormal,AA-Critical Abnormal Performed at: 02 [facility] [address] [place] [address] Belinda Rosenberg MD, SPATULA-ALONE ENDOCERVIX CLINIS[facility] Urinalysis macro (dipstick) panel (U)on 06-15-2023 Bilirubin, UA Negative Negative - 4(70) +++ mg/dL [facility] [employer] Blood, UA Negative Negative - 50 Bonifacio/mcL [facility] [employer] Clarity, UA Clear [facility] Color, UA Yellow [facility] Glucose, UA Negative Negative - 1999(110) ++++ mg/dL [facility] Interpretation and review of laboratory results Normal [facility] Ketones, UA Negative Negative - 160(16) ++++ mg/dL [facility] Leukocytes, UA Negative Negative - 500+++ Shahrzad/mcL [facility] Nitrite, UA Negative Negative - Positive [facility] pH, UA 5.5 5 - 9 [facility] Protein, UA Negative Negative - 1999(20) ++++ mg/dL [facility] Spec Grav, UA 1.020 1 - 1.03 [facility] Urobilinogen, UA 1.0 0.2 - 12 mg/dL [facility] Vital Signs Date Time Vital Sign Value Performing Clinician Sharonda lorenz 06-15-2023 15:48-0500 Body weight 92.53 kg Barbara Christofer DO Work Phone: [facility] 06-15-2023 15:48-0500 Diastolic blood pressure 74 mm[Hg] Barbara Christofer DO Work Phone: [facility] 06-15-2023 15:48-0500 Systolic blood pressure 120 mm[Hg] Barbara Christofer DO Work Phone: [facility] Encounters Encounter Date Encounter Type Care [...] encounter procedure Barbara Beaulieu DO Work Phone: [facility] Start: 06-15-2023 End: 06-15-2023 Periodic preventive [...] PM EST Routine [facility] [address] [place] [id number] Jeny Modi, PA [address] [place] [address] [facility] Start: 07-13-2023 End: 07-13-2023 Professional / ancillary services management 07/13/2023 2:00 PM EST Ancillary Procedure [facility] [address] [place] [id number] [facility] Start: 06-15-2023 End: 09-13-2023 Alpha fetoprotein, maternal Alpha fetoprotein, maternal Lab Routine Second trimester Expected: 06/15/2023 (Approximate), Expires: 09/13/2023 [facility] Comment on above: Expected: 06/15/2023 (Approximate), Expires: 09/13/2023 Start: 06-15-2023 End: 06-15-2024 US for US OB ANATOMY SINGLE W US OB CERVICAL LENGTH Imaging Routine Screening, , for anatomic survey Expected: 06/15/2023 (Approximate), Expires: 06/15/2024 [facility] Comment on above: Expected: 06/15/2023 (Approximate), Expires: 06/15/2024 CHLAMYDIA TRACHOMATI S (GENITO/STI) CHLAMYDIA TRACHOMATIS (GENITO/STI) Lab Routine Exposure to STD Ordered: 06/15/2023 [facility] Comment on above: Ordered: 06/15/2023 Cytology Cervical or vaginal smear or scraping study Pap Smear Pathology and Cytology Routine Well woman exam with routine gynecological exam Ordered: 06/15/2023 [facility] Work Phone: Comment on above: Ordered: 06/15/2023 Human papilloma viru s DNA [Presence] in Unspecified specimen by Probe with amplification HPV DNA probe, amplified Microbiology Routine Well woman exam with routine gynecological exam Ordered: 06/15/2023 [facility] Comment on above: Ordered: 06/15/2023 Measurement of gluco se 1 hour after glucose challenge for glucose tolerance test GTT, 1 hour Lab Routine Family history of gestational diabetes mellitus (GDM) Ordered: 06/15/2023 [facility] Comment on above: Ordered: 06/15/2023 Neisseria gonorrhoea e DNA [Presence] in Unspecified specimen by SHAILA with probe detection Neisseria gonorrhea DNA probe, direct Lab Routine Exposure to STD Ordered: 06/15/2023 [facility] Comment on above: Ordered: 06/15/2023 SURESWAB(R) ADVANCED VAGINITIS PLUS, TMA SURESWAB(R) ADVANCED VAGINITIS PLUS, TMA Pathology and Cytology Routine Vaginal discharge Ordered: 06/15/2023 [facility] Comment on above: Ordered: 06/15/2023 Payers Date Payer Category Payer Unknown [employer] [id number] 2022-Present [phone] [address] [address] [place] [address] [id number] 2022 Unknown [id number] 1991 Unknown [id number] 2.16.840.1.410520.3.579.2.59 3 1991 Unknown [id number] 2.16.840.1.272413.3.579.2.12 59 1991 Unknown [id number] 2.16.840.1.659264.3.579.2.12 59 1991 Unknown [id number] 2.16.840.1.746237.3.579.2.12 59 1991 Unknown [id number] 2.16.840.1.571767.3.579.2.12 59 1991 Unknown [id number] 2.16.840.1.731765.3.579.2.12 59 1991 Unknown [id number] 2.16.840.1.214227.3.579.2.12 59 1991 Unknown [id number] 2.16.840.1.983127.3.579.2.12 59 1991 Unknown [id number] 2.16.840.1.438178.3.579.2.12 59 1991 Unknown [id number] 2.16.840.1.399241.3.579.2.12 59 1991 Unknown [id number] 2.16.840.1.493958.3.579.2.12 59 1991 Unknown [id number] 2.16.840.1.014844.3.579.2.12 59 1991 Unknown [id number] 2.16.840.1.299252.3.579.2.12 59 1959 Self-pay [id number] Social History Date Type Detail Facility Tobacco smoking stat [facility] Tobacco smoking consumption unknown [facility] [...] nursing note reviewed. Exam conducted with a supervisor paste mixing present. Vitals: There is no height or [...] AUTHOR 'S EREN ATTANG 11/10/2023 [facility] dical Specialists EPIC Reason for Visit [...] BE BASED ON THE PRIMARY CLINICAL RECORDS. [facility]. provides no warranty or guarantee of the accuracy or completeness of information in this document.
[2023-11-12 11:10] LABS: Basophils Percent Auto 0.3 % (0.2-2.0); Eosinophils Absolute Auto 0.1 10^3/uL (0.0-0.7); Eosinophils Percent Auto 1.2 % (0.9-7.0); Hematocrit 35.6 % (36.0-48.0); Hemoglobin 12.3 g/dL (12.0-16.0); Immature Granulocytes Abs Auto 0.05 10^3/uL (0.00-0.03); Immature Granulocytes Pct Auto 0.5 % (0.0-0.5); Lymphocytes Absolute Auto 2.2 10^3/uL (1.2-3.8); Lymphocytes Percent Auto 21.9 % (20.5-60.0); Mean Corpuscular HGB Conc 34.6 g/dL (29.9-35.2); Mean Corpuscular Hemoglobin 33.2 pg (26.7-34.0); Mean Platelet Volume 11.4 fL (9.5-13.5); Monocytes Absolute Auto 0.5 10^3/uL (0.3-0.8); Monocytes Percent Auto 5.4 % (1.7-12.0); Neutrophils Absolute Auto 7.1 10^3/uL (1.4-6.5); Neutrophils Percent Auto 70.7 % (43.0-75.0); Platelet Count 253 10^3/uL (150-450); Red Blood Count 3.71 10^6/uL (4.20-5.40); Red Cell Distribution Width 13.6 % (11.0-15.0)
[2023-11-12 11:17] LABS: Creatinine Urine Random 98.89 mg/dL (20.00-300.00); Total Protein Urine Random 9.7 mg/dL (<=11.9)
[2023-11-12] MEDS: LABETALOL HCL 200 MG TABLET PO ×2 (11:17→23:02)
[2023-11-12 11:20] LABS: Alanine Aminotransferase 18 U/L (14-59); Aspartate Amino Transferase 26 U/L (15-37); Estimated GFR (African America >60 (>=60); Estimated GFR (Non-African Ame >60 (>=60); Uric Acid 7.3 mg/dL (2.6-6.0)
[2023-11-12 11:27] LABS: Amphetamine Screen Urine NEGATIVE (NEGATIVE); Barbiturates Screen Urine NEGATIVE (NEGATIVE); Benzodiazepines Screen Urine NEGATIVE (NEGATIVE); Buprenorphine Screen Urine NEGATIVE (NEGATIVE); Cannabinoid Screen Urine NEGATIVE (NEGATIVE); Cocaine Screen Urine NEGATIVE (NEGATIVE); Methadone Screen Urine NEGATIVE (NEGATIVE); Methamphetamines Screen Urine NEGATIVE (NEGATIVE); Opiate Screen Urine NEGATIVE (NEGATIVE); Oxycodone Screen Urine NEGATIVE (NEGATIVE); Phencyclidine Screen Urine NEGATIVE (NEGATIVE); Tricyclic Antidepressant Urine NEGATIVE (NEGATIVE)
[2023-11-12] MEDS: 0.9 % SODIUM CHLORIDE 1,000 ML 125 ML IV ×2 (12:36→22:01)
[2023-11-12] MEDS: OXYTOCIN/0.9 % SODIUM CHLORIDE 10 UNITS/500 ML PLAST..BAG 6 UNIT IV (13:00)
[2023-11-12 13:08] LABS: Partial Thromboplastin Time 26.1 sec (22.3-36.2); Prothrombin Time 9.8 sec (9.0-11.6)
[2023-11-12 13:09] LABS: Fibrinogen 537 mg/dL (200-400); INR <0.93
[2023-11-12] MEDS: 0.9 % SODIUM CHLORIDE 1,000 ML 1000 ML IV (20:07)
[2023-11-12] MEDS: ROPIVACAINE HCL/PF 400 MG/200 ML PREMIX 6 MG EPIDURAL (20:46)
--- NOTE | 2023-11-12 23:33 | PM.OBPRCVD ---
Procedure Intrapartal events: None Induction method: per pitocin protocol Delivery augmentation: rupture of membranes and pitocin Delivery monitor: external FHT and external uterine Route of delivery: Episiotomy Description: none L&D Laceration Description: periurethral - 2nd degree Delivery repair: Vicryl Estimated blood loss (mL): 300 Anesthesia type: Epidural Disposition: PACU Infant Delivery date: 11/12/23 Gender: male presentation: vertex Placental delivery description: Spontaneous cord description: 3 Vessels
[2023-11-13] VITALS (14 sets, daily range): BP systolic 112–150; BP diastolic 58–81; PULSE 84–103; TEMP 35.9–36.9
[2023-11-13] MEDS: OXYTOCIN/0.9 % SODIUM CHLORIDE 20 UNITS/1,000 ML PLAST..BAG 125 UNIT IV (00:05)
--- NOTE | 2023-11-13 01:48 | PC.NURSE ---
0135- Epidural catheter removed with tip intact. Band aid applied to back.
[2023-11-13 06:23] LABS: Basophils Percent Auto 0.1 % (0.2-2.0); Eosinophils Percent Auto 0.1 % (0.9-7.0); Hematocrit 28.5 % (36.0-48.0); Hemoglobin 9.8 g/dL (12.0-16.0); Immature Granulocytes Abs Auto 0.06 10^3/uL (0.00-0.03); Immature Granulocytes Pct Auto 0.4 % (0.0-0.5); Lymphocytes Absolute Auto 1.6 10^3/uL (1.2-3.8); Lymphocytes Percent Auto 11.5 % (20.5-60.0); Mean Corpuscular HGB Conc 34.4 g/dL (29.9-35.2); Mean Corpuscular Hemoglobin 32.9 pg (26.7-34.0); Mean Corpuscular Volume 95.6 fL (81.0-99.0); Mean Platelet Volume 10.5 fL (9.5-13.5); Monocytes Absolute Auto 0.7 10^3/uL (0.3-0.8); Monocytes Percent Auto 4.9 % (1.7-12.0); Neutrophils Absolute Auto 11.8 10^3/uL (1.4-6.5); Platelet Count 230 10^3/uL (150-450); Red Blood Count 2.98 10^6/uL (4.20-5.40); Red Cell Distribution Width 13.7 % (11.0-15.0); White Blood Count 14.2 10^3/uL (4.0-11.0)
[2023-11-13] MEDS: IBUPROFEN 600 MG TABLET PO ×3 (09:06→23:20)
[2023-11-13] MEDS: DOCUSATE SODIUM 100 MG CAPSULE PO ×2 (09:07→20:27)
--- NOTE | 2023-11-13 11:06 | PM.OBPN ---
OB - PN: Subj Subjective Patient comments: no complaints and pain well controlled [place] status: doing well Exam Constitutional Vital Signs, click to edit/add: Last Vital Signs Temp 98.2 F 11/13/23 09:30 Pulse 103 H 11/13/23 09:05 Resp 16 11/13/23 09:30 BP 125/66 11/13/23 09:05 O2 Del Method Room Air 11/13/23 09:30 Documenting provider has reviewed patient's vital signs: yes Common normals: no apparent distress Respiratory Common normals: normal respiratory effort and clear to auscultation bilaterally Cardio Common normals: regular rate and regular rhythm GI Common normals: Normal to inspection, nondistended, normoactive bowel sounds present Extremity Common normals: normal to inspection, no clubbing, cyanosis or edema and no calf tenderness Results Labs Labs: Short CBC 11/12/23 11/13/23 Range/Units 10:30 06:18 WBC 10.0 14.2 H (4.0-11.0) 10^3/uL Hgb 12.3 9.8 L (12.0-16.0) g/dL Hct 35.6 L 28.5 L (36.0-48.0) % Plt Count 253 230 (150-450) 10^3/uL BMP 11/12/23 10:30 BUN 7.0 Creatinine 0.72 Liver Function 11/12/23 Range/Units 10:30 AST 26 (15-37) U/L ALT 18 (14-59) U/L OB - PN: A/P Assessment and Plan (1) Mild preeclampsia: Assessment and Plan: recommend delivery dt elevated bp Plan - Vaginal Delivery day: 1 Plan: routine care Time Spent with Patient Time: Total time spent is greater than 50% in coordination of care (as documented) at patient's floor/unit and/or counseling patient: Total time spent with greater than 50% in coordination of care (as documented) at patient's floor/unit and/or counseling patient: less than 15 minutes
[2023-11-13] MEDS: LABETALOL HCL 200 MG TABLET PO ×2 (11:43→23:20)
--- NOTE | 2023-11-13 20:34 | W.PC.ACHO ---
Registration Status: ADM IN Primary Language: [place] Preferred Language: [place] Report received from BENJAMIN RN at 1900. Active Medications Generic Name Dose Route Start Last Admin Trade Name Freq PRN Reason Stop Dose Admin Acetaminophen 650 mg 11/12/23 23:34 Acetaminophen 325 Mg Tablet PO Q6H PRN Mild Pain Al Hydroxide/Mg Hydroxide 2,400 mg 11/12/23 23:34 Magnesium Hydroxide 2,400 Mg/10 Ml Oral.Susp PO Q6H PRN Dyspepsia Benzocaine/Menthol 1 applic 11/12/23 23:34 Benzocaine/Menthol 85 Gram [place] Bottle TOPICAL Q2H PRN Pain Carboprost Tromethamine 250 mcg 11/12/23 09:46 Carboprost Tromethamine 250 Mcg/Ml 1 Ml Vial IM 11/13/23 23:00 Q15M PRN Bleeding Diphtheria/Pertussis/Tetanus Vacc 0.5 ml 11/14/23 09:00 Adacel Diph,Pertuss(Acell),Tet Vac/Pf 0.5 Ml Adult Syringe IM 11/14/23 09:01 .ONCE ONE Docusate Sodium 100 mg 11/13/23 09:00 11/13/23 20:27 Docusate Sodium 100 Mg Capsule PO 100 mg BID LAUREN Administration Sodium Chloride 1,000 mls @ 125 mls/hr 11/12/23 10:00 11/12/23 22:01 Sodium Chloride 0.9% 1,000 Ml IV 125 mls/hr .Q8H LAUREN Administration Ibuprofen 600 mg 11/12/23 23:34 11/13/23 16:59 Ibuprofen 600 Mg Tablet PO 600 mg Q6H PRN Administration Moderate Pain Labetalol HCl 200 mg 11/12/23 23:00 11/13/23 11:43 Labetalol Hcl 200 Mg Tablet PO 200 mg BID@1100,2300 LAUREN Administration Measles/Mumps/Rubella Vaccine Live 0.5 ml 11/14/23 09:00 Measles,Mumps,Rubella Vacc/Pf 0.5 Ml Vial SQ 11/14/23 09:01 .ONCE ONE Misoprostol 600 mcg 11/12/23 09:46 Misoprostol 100 Mcg Tablet PO 11/13/23 23:00 ONCE PRN Uterine Bleeding Misoprostol 800 mcg 11/12/23 09:46 Misoprostol 100 Mcg Tablet SL 11/13/23 23:00 ONCE PRN Uterine Bleeding Misoprostol 1,000 mcg 11/12/23 09:46 Misoprostol 100 Mcg Tablet AK 11/13/23 23:00 ONCE PRN Uterine Bleeding Ondansetron HCl 4 mg 11/12/23 09:46 Ondansetron Pf 4 Mg/2 Ml Vial IV Q6H PRN Nausea And Vomiting Ondansetron HCl 4 mg 11/12/23 09:46 Ondansetron 4 Mg Rapdis Tablet SL Q6H PRN Nausea And Vomiting Senna 17.2 mg 11/12/23 20:00 Sennosides 8.6 Mg Tablet PO QHS PRN Constipation Simethicone 80 mg 11/12/23 23:34 Simethicone 80 Mg Tab.Chew PO QID PRN Abdominal Distention Temazepam 15 mg 11/12/23 23:34 Temazepam 15 Mg Capsule PO QHS PRN Sleep Witch Samantha/Glycerin 1 pad 11/12/23 23:34 Glycerin/Witch Samantha Pads TOPICAL Q2H PRN Pain Diet Category Date Time Status Regular Consistency Diet Diet 11/12/23 23:34 Active Respiratory Oxygen Delivery Method Room Air Oxygen Delivery Method Room Air Oxygen Delivery Method Room Air Oxygen Delivery Method Room Air Bowels Bowel Pattern No Bowel Movement Bowel Pattern No Bowel Movement Bowel Pattern No Bowel Movement Renal Bladder Pattern Continent Bladder Pattern Continent Bladder Pattern Continent
--- NOTE | 2023-11-14 07:51 | W.PC.ACHO ---
Registration Status: ADM IN Primary Language: Guatemalan Preferred Language: Guatemalan Report given to Sarah Zepeda at 0720. Active Medications Generic Name Dose Route Start Last Admin Trade Name Freq PRN Reason Stop Dose Admin Acetaminophen 650 mg 11/12/23 23:34 Acetaminophen 325 Mg Tablet PO Q6H PRN Mild Pain Al Hydroxide/Mg Hydroxide 2,400 mg 11/12/23 23:34 Magnesium Hydroxide 2,400 Mg/10 Ml Oral.Susp PO Q6H PRN Dyspepsia Benzocaine/Menthol 1 applic 11/12/23 23:34 Benzocaine/Menthol 85 Gram [place] Bottle TOPICAL Q2H PRN Pain Diphtheria/Pertussis/Tetanus Vacc 0.5 ml 11/14/23 09:00 Adacel Diph,Pertuss(Acell),Tet Vac/Pf 0.5 Ml Adult Syringe IM 11/14/23 09:01 .ONCE ONE Docusate Sodium 100 mg 11/13/23 09:00 11/13/23 20:27 Docusate Sodium 100 Mg Capsule PO 100 mg BID LAUREN Administration Sodium Chloride 1,000 mls @ 125 mls/hr 11/12/23 10:00 11/12/23 22:01 Sodium Chloride 0.9% 1,000 Ml IV 125 mls/hr .Q8H LAUREN Administration Ibuprofen 600 mg 11/12/23 23:34 11/13/23 23:20 Ibuprofen 600 Mg Tablet PO 600 mg Q6H PRN Administration Moderate Pain Labetalol HCl 200 mg 11/12/23 23:00 11/13/23 23:20 Labetalol Hcl 200 Mg Tablet PO 200 mg BID@1100,2300 LAUREN Administration Measles/Mumps/Rubella Vaccine Live 0.5 ml 11/14/23 09:00 Measles,Mumps,Rubella Vacc/Pf 0.5 Ml Vial SQ 11/14/23 09:01 .ONCE ONE Ondansetron HCl 4 mg 11/12/23 09:46 Ondansetron Pf 4 Mg/2 Ml Vial IV Q6H PRN Nausea And Vomiting Ondansetron HCl 4 mg 11/12/23 09:46 Ondansetron 4 Mg Rapdis Tablet SL Q6H PRN Nausea And Vomiting Senna 17.2 mg 11/12/23 20:00 Sennosides 8.6 Mg Tablet PO QHS PRN Constipation Simethicone 80 mg 11/12/23 23:34 Simethicone 80 Mg Tab.Chew PO QID PRN Abdominal Distention Temazepam 15 mg 11/12/23 23:34 Temazepam 15 Mg Capsule PO QHS PRN Sleep Witch Samantha/Glycerin 1 pad 11/12/23 23:34 Glycerin/Witch Samantha Pads TOPICAL Q2H PRN Pain Respiratory Oxygen Delivery Method Room Air Oxygen Delivery Method Room Air Oxygen Delivery Method Room Air Bowels Bowel Pattern No Bowel Movement Renal Bladder Pattern Continent Bladder Pattern Continent
--- NOTE | 2023-11-14 08:26 | PM.OBPN ---
OB - PN: Subj Subjective Patient comments: no complaints and pain well controlled [place] status: doing well Exam Constitutional Vital Signs, click to edit/add: Last Vital Signs Temp 97.0 F L 11/13/23 23:15 Pulse 86 11/13/23 23:20 Resp 16 11/13/23 23:15 BP 112/59 11/13/23 23:20 O2 Del Method Room Air 11/13/23 23:15 Documenting provider has reviewed patient's vital signs: yes Common normals: no apparent distress Respiratory Common normals: normal respiratory effort and clear to auscultation bilaterally Cardio Common normals: regular rate and regular rhythm GI Common normals: Normal to inspection, nondistended, normoactive bowel sounds present Extremity Common normals: normal to inspection and no calf tenderness OB - PN: A/P Assessment and Plan (1) Mild preeclampsia: Plan - Vaginal Delivery day: 2 Plan: routine care, discharge home and follow up 6 weeks Time Spent with Patient Time: Total time spent is greater than 50% in coordination of care (as documented) at patient's floor/unit and/or counseling patient: Total time spent with greater than 50% in coordination of care (as documented) at patient's floor/unit and/or counseling patient: less than 15 minutes
[2023-11-14] MEDS: IBUPROFEN 600 MG TABLET PO (08:45)
[2023-11-14] MEDS: DOCUSATE SODIUM 100 MG CAPSULE PO (08:45)
[2023-11-14 08:46] VITALS: BP 133/66; PULSE 82
[2023-11-14] MEDS: LABETALOL HCL 200 MG TABLET PO (11:05)
== END 2023-11-14 14:00 | disposition home or self-care (01) | DRG 807 ==
LOC: FBCO 09:59 → FBC 09:59
PROVIDERS: Admitting Provider Obstetrics & Gynecology; Visit Provider Obstetrics & Gynecology
DX: O14.04 Mild to moderate pre-eclampsia, complicating childbirth (principal); Z37.0 Single live birth; O70.1 Second degree perineal laceration during delivery; Z3A.37 37 weeks gestation of pregnancy
CPT/HCPCS: 36415; 51702; 59025; 59050; 59410; 80307; 82565; 82570; 84156; 84450; 84460; 84520; 84550; 85025; 85384; 85610; 85730; 86850; 86900; 86901; 96374; 96376; J2795